=== PATIENT | male | born 1965 | race Caucasian/White ===

== ENCOUNTER 2017-02-01 16:30 | Inpatient (IN) | payer OTHER ==
[~2017-02-01] VITALS: Ht 180.3 cm; Wt 102.1 kg
[~2017-02-01 16:30] MED LIST: CITA20TA9 PO; CYCL10TA6 PO; NORT25CA PO; OXYC-57 PO; oxycontin PO
[2017-02-01] MEDS ORDERED: HYDROmorphone INJ 1 MG/ML SYR IV STA (16:55)
[2017-02-01] MEDS ORDERED: SODIUM CHLORIDE 0.9% 1000ML 1,000 ML IV STA (16:55)
[2017-02-01] MEDS ORDERED: ONDANSETRON INJ 2 MG/ML 2 ML VIAL IV STA (16:55)
[2017-02-01] MEDS ORDERED: FLM4 PO (17:03)
[2017-02-01 17:07] LABS: BASO % 0.3 %; BASO ABS # 0.04 K/uL (0-0.2); COMPLETE YES; EOS % 0.3 %; IG% 0.4 %; LYMPH % 9.7 %; LYMPH ABS # 1.39 K/uL (1.2-3.4); MEAN CELL VOLUME 83.9 fL (80-100); MEAN CORPUSCULAR HEMOGLOBIN 30.8 pg (25-34); MEAN CORPUSCULAR HGB CONC 36.7 g/dl (32-36); MEAN PLATELET VOLUME 10.5 fL (7.4-10.4); MONO % 6.6 %; NEUT % 82.7 %; PLATELET COUNT 224 K/uL (130-400); RED BLOOD COUNT 5.84 M/uL (4.7-6.1); WHITE BLOOD COUNT 14.33 K/uL (4.8-10.8)
[2017-02-01 17:13] LABS: URINE APPEARANCE CLEAR (CLEAR); URINE BILIRUBIN NEG (NEG); URINE COLOR YELLOW; URINE EPITHELIAL CELL AUTO 0-5 /lpf (0-5); URINE NITRITE NEG (NEG); URINE SPECIFIC GRAVITY 1.013 (1.000-1.030); UROBILINOGEN NEG (NEG)
[2017-02-01 17:23] LABS: BUN/CREATININE RATIO 8.9 (10-20); CALCIUM 9.5 mg/dl (8.5-10.1); CREATININE 1.4 mg/dl (0.60-1.40); MANUAL MICROSCOPIC REQUIRED? NO; POTASSIUM 3.4 mmol/L (3.5-5.1); REVIEW REQ? NO
[2017-02-01] MEDS ORDERED: HYDROmorphone INJ 0.5 MG/0.5 ML SYR IV STA (17:44)
--- NOTE | 2017-02-01 18:02 | History and Physical ---
History & Physical Date & Time of Service: Feb 01, 2017 at 18:00 Chief Complaint: Kidney Stone, Sever Pain Left Side, Vomiting Primary Care Physician: Jeyson Mike D.O. History of Present Illness Source: patient, family 52 year old male with history of Chronic Back Pain, GERD, Depression presenting with persistent left flank pain x 1 week. Patient had 2 ER visits at [facility] the past week secondary to left flank pain. CT abdomen last taken 01/30/17 showed left ureteral stone 3mm, distal ureter, obstructing with left hydroureteronephrosis and perinephric/ureteral stranding. He is currently following with [facility] in [place] and scheduled for cystoscopy on Sunday. Today, patient had severe pain, called the Urology Clinic and was advised to go to [facility] for management. At the ER, patient was given Dilaudid but noted to desaturate in the 70s, placed on oxygen and improved. His WBC is elevated at 14k, but afebrile, UA no bacteria. On exam, patient states pain is moderate, radiating to left flank, and testicle. Denies dominic hematuria, has chills. No other symptoms. Denies dyspnea, cough, chest pain. Family History Cancer- parents Social History Smoking Status: Never Smoker Smokeless Tobacco Use: No Alcohol Use: none Drug Use: none Marital Status: Housing status: lives with family Allergies Coded Allergies: Codeine (Unverified Allergy, Unknown, Nausea/vomiting, 02/01/17) Morphine (Unverified Allergy, Unknown, Nausea/vomiting, 03/28/16) Home Medications Scheduled Citalopram Hydrobromide (Celexa), 1 TAB PO DAILY Cyclobenzaprine Hcl (Flexeril), 1 TAB PO TID Nortriptyline (Pamelor), 25 MG PO HS Tamsulosin HCl (Tamsulosin HCl), 0.4 MG PO DAILY Scheduled PRN Oxycodone/Acetaminophen 5MG/325MG (Percocet 5MG/325MG), 2 TABLETS PO Q4H PRN for Pain Review of Systems Constitutional-(+) chills; no weight loss Eyes- no acute visual changes ENT- no sinus drainage; no pharyngitis Pulmonary- no cough, no wheezing, no shortness of breath Cardiac- no chest pain, no palpitations, no orthopnea, no dependent edema GI- (+) nausea - (+) as noted above Musculoskeletal- no arthralgias, no myalgias Derm- no rashes, no new skin lesions, no changing skin lesions Hematologic- no unusual bruising, no unusual bleeding Lymphatics- no adenopathy Endocrine- no polyuria or polydipsia; no heat or cold intolerance Neuro- no headaches, no focal neurologic symptoms Psych- no anxiety, no depression Physical Exam Vital Signs Date Time Temp Pulse Resp B/P (MAP) Pulse Ox O2 Delivery O2 Flow Rate FiO2 02/01/17 17:31 150/84 02/01/17 17:30 75 15 94 02/01/17 17:30 94 Nasal Cannula 3.0 02/01/17 17:29 76 Room Air 02/01/17 17:09 81 02/01/17 17:07 81 18 141/86 100 Room Air 02/01/17 17:07 141/86 02/01/17 16:44 36.5 81 18 154/89 100 Room Air General Appearance: WD/WN, no apparent distress Head: normocephalic, atraumatic Eyes: normal inspection, EOMI, sclerae normal ENT: normal ENT inspection, hearing grossly normal, pharynx normal Neck: supple, no adenopathy, thyroid normal, no JVD, trachea midline Respiratory/Chest: chest non-tender, lungs clear, normal breath sounds, no respiratory distress, no accessory muscle use Cardiovascular: regular rate, rhythm, no edema, no JVD, no murmur, normal peripheral pulses Abdomen/GI: normal bowel sounds, soft, no organomegaly, + pertinent finding ( mild left CVA tenderness, left flank tenderness) Back: normal inspection, + left CVA tenderness Extremities/Musculoskelatal: normal inspection, no calf tenderness, normal capillary refill, no pedal edema 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, no motor/sensory deficits, alert, normal mood/affect, oriented x 3 Skin: normal color, warm/dry, no rash Lymphatic: no adenopathy Diagnostics Laboratory Results Results Past 24 Hours Test 02/01/17 16:51 Range/Units White Blood Count 14.33 4.8-10.8 K/uL Red Blood Count 5.84 4.7-6.1 M/uL Hemoglobin 18.0 14.0-18.0 g/dL Hematocrit 49.0 42-52 % Mean Corpuscular Volume 83.9 80-100 fL Mean Corpuscular Hemoglobin 30.8 25-34 pg Mean Corpuscular Hemoglobin Concent 36.7 32-36 g/dl Platelet Count 224 130-400 K/uL Mean Platelet Volume 10.5 7.4-10.4 fL Neutrophils (%) (Auto) 82.7 % Lymphocytes (%) (Auto) 9.7 % Monocytes (%) (Auto) 6.6 % Eosinophils (%) (Auto) 0.3 % Basophils (%) (Auto) 0.3 % Neutrophils # (Auto) 11.85 1.4-6.5 K/uL Lymphocytes # (Auto) 1.39 1.2-3.4 K/uL Monocytes # (Auto) 0.94 0.11-0.59 K/uL Eosinophils # (Auto) 0.05 0-0.5 K/uL Basophils # (Auto) 0.04 0-0.2 K/uL RDW Standard Deviation 39.2 36.4-46.3 fL RDW Coefficient of Variation 13.0 11.5-14.5 % Immature Granulocyte % (Auto) 0.4 % Immature Granulocyte # (Auto) 0.06 0.00-0.02 K/uL Urine Color YELLOW Urine Appearance CLEAR CLEAR Urine pH 7.0 4.5-7.5 Urine Specific [place] 1.013 1.000-1.030 Urine Protein NEG NEG Urine Glucose (UA) NEG NEG Urine Ketones NEG NEG Urine Occult Blood 1+ NEG Urine Nitrite NEG NEG Urine Bilirubin NEG NEG Urine Urobilinogen NEG NEG Urine Leukocyte Esterase NEG NEG Urine WBC (Auto) 1-5 0-5 /hpf Urine RBC (Auto) 0-4 0-4 /hpf Urine Hyaline Casts (Auto) 0 0-5 /lpf Urine Epithelial Cells (Auto) 0-5 0-5 /lpf Urine Bacteria (Auto) NEG NEG Sodium Level 136 136-145 mmol/L Potassium Level 3.4 3.5-5.1 mmol/L Chloride Level 102 98-107 mmol/L Carbon Dioxide Level 26 21-32 mmol/L Anion Gap 8.0 3-11 mmol/L Blood Urea Nitrogen 12 7-18 mg/dl Creatinine 1.40 0.60-1.40 mg/dl Est Creatinine Clear Calc Drug Dose 76.7 ml/min Estimated GFR () 67.4 Estimated GFR (Non- 58.2 BUN/Creatinine Ratio 8.9 10-20 Random Glucose 103 70-99 mg/dl Calcium Level 9.5 8.5-10.1 mg/dl Total Bilirubin 0.8 0.2-1 mg/dl Direct Bilirubin 0.1 0-0.2 mg/dl Aspartate Amino Transf (AST/SGOT) 32 15-37 U/L Alanine Aminotransferase (ALT/SGPT) 80 12-78 U/L Alkaline Phosphatase 100 45-117 U/L Total Protein 9.0 6.4-8.2 gm/dl Albumin 4.6 3.4-5.0 gm/dl Lipase 139 73-393 U/L Diagnostic Radiology EXAM EXAM: CT ABDOMEN /PELVIS WITHOUT IV CONTRAST WITHOUT ORAL DATE and TIME: 01/30/2017 11:26 pm HISTORY CLINICAL INFORMATION: Left-sided kidney stone but today with increased pain nausea vomiting TECHNIQUE CT abdomen and pelvis without intravenous or oral contrast. Axial 2.5 mm images are obtained from lung bases to upper thigh. Sagittal and coronal MPR images are obtained from axial data. COMPARISON CT ABDOMEN /PELVIS WITHOUT IV CONTRAST WITHOUT ORAL dated 01/28/2017 FINDINGS LOWER CHEST: HEART(visualized): Unremarkable LUNG BASES: Atelectasis in bilateral lower lobes. No pleural effusion ABDOMEN/PELVIS: LINES AND DEVICES: None LIVER: Diffuse hepatic steatosis. BILE DUCTS: Unremarkable GALLBLADDER: Unremarkable PANCREAS: Unremarkable SPLEEN: Unremarkable ADRENALS: Unremarkable KIDNEYS/URETERS: No right nephrolithiasis or hydronephrosis. Unchanged 3 mm calculus in the left lower ureter with progression of left hydroureteronephrosis. Mild thickening of the left lower ureter and periureteric stranding in the pelvis on image [id number], series 3. New finding of left perinephric stranding and thickening of left pararenal fascia. BLADDER: Unremarkable BOWEL: Scattered colonic diverticulosis. Unremarkable appendix. LYMPH NODES: No lymphadenopathy. VESSELS: Small calcified plaque in the right iliac artery. REPRODUCTIVE ORGANS: Stable central calcification within the seminal vesicles. PERITONEUM/RETROPERITONEUM: No ascites or pneumoperitoneum. ABDOMINAL WALL/SOFT TISSUES: Small fat containing umbilical hernia. BONES: Stable postsurgical changes in the spine, status post a laminectomy L5 with posterior spinal fusion L4, L5 and S1. IMPRESSION 1. No interval change in the position of 3 mm obstructing calculus in the left lower ureter with progression of left hydroureteronephrosis and perinephric stranding. Mild thickening of the left lower ureter and periureteric stranding. Correlate with urine analysis to exclude superimposed infection. 2. Diffuse hepatic steatosis. Impression Assessment and Plan 52 year old male with history of Chronic Back Pain, GERD, Depression presenting with persistent left flank pain x 1 week. LEFT URETERAL OBSTRUCTING STONE WITH URETEROHYDRONEPHROSIS POSSIBLE UTI -- will follow up urine culture drawn at [facility] blood cultures ordered -- empiric Ceftriaxone IV IV fluids Toradol, Percocet PRN no Dilaudid and Morphine due to respiratory depression -- discussed with Dr. Miranda, possible Cystoscopy tomorrow NPO post midnight HYPO K -- will replace and monitor EPISODE OF HYPOXIA -- likely respiratory depression from Dilaudid will avoid IV narcotics -- check CXR CHRONIC BACK PAIN -- on chronic Percocet will continue DEPRESSION -- on Citalopram, Nortriptyline DVT proph SCDs Full code per patient Dispo Anticipate d/c home when medically stable VTE Prophylaxis VTE Risk Assessment Done? Y/N: Yes Risk Level: Moderate
[2017-02-01 18:40] VITALS: BP 150/84; PULSE 94; TEMP 36.5; O2SAT 98; Ht 180.3 cm; Wt 102.1 kg
[2017-02-01] MEDS ORDERED: OXYCODONE/ACETAMINOPHEN 5-325 TAB PO PRN (19:15)
[2017-02-01] MEDS ORDERED: ACETAMINOPHEN 325 MG TAB PO PRN (19:15)
[2017-02-01] MEDS ORDERED: POTASSIUM CHLORIDE 10 MEQ TABCR PO ONE (19:30)
[2017-02-01] MEDS ORDERED: KETOROLAC TROMETHAMINE 30 MG/ML VIAL IV ONE (19:30)
[2017-02-01 20:00] VITALS: BP 108/76; PULSE 84; TEMP 36.5; O2SAT 92
[2017-02-01] MEDS: NSS + 20MEQ KCL 1000ML 1,000 ML IV SCH (20:35)
[2017-02-01] MEDS: CEFTRIAXONE SOD INJ 2,000 MG in DEXTROSE 5% 50ML 50 ML IV SCH (20:36)
[2017-02-01] MEDS: ONDANSETRON INJ 2 MG/ML 2 ML VIAL IV PRN (20:55)
[2017-02-01] MEDS: NORTRIPTYLINE HCL 25 MG CAP PO SCH ×2 (20:55→20:58)
--- NOTE | 2017-02-01 21:15 | DIAGNOSTIC IMAGING REPORT ---
CHEST ONE VIEW PORTABLE CLINICAL HISTORY: episode of hypoxia dyspnea COMPARISON STUDY: No previous studies for comparison. FINDINGS: Minimal parenchymal infiltrative change left base. Lungs otherwise appear clear. Mild cardiac enlargement. IMPRESSION: Mild parenchymal infiltrate left base. Mild cardiomegaly. The above report was generated using voice recognition software. It may contain grammatical, syntax or spelling errors. Electronically signed by: Dong Hector M.D. 02/01/2017 9:13 PM Dictated Date/Time: 02/01/2017 9:13 PM
--- NOTE | 2017-02-01 22:19 | Urology Consultation ---
History General Date of Service: Feb 01, 2017. Chief Complaint: L flank pain, stone disease Primary Care Physician: Jeyson Mike D.O. Pt seen a urologist before?: Yes If yes, why?: Stone disease History of Present Illness Patient is a 52-year-old male who complains of left-sided flank pain for over a week. He resides in [place] and was pending evaluation for possible stone intervention early next week. He has had lab work and imaging including a CT scan done at [facility] report of which is noted in the H&P of the primary service. This demonstrates a left distal 3 mm ureteral stone with hydronephrosis. Patient has not been febrile but is suffered from intractable pain and nausea. Unfortunately, on provision of IV Dilaudid in the emergency room patient desaturated and therefore is in the cardiac ICU for closer monitoring. He was transferred locally for urology coverage. His creatinine is noted to currently be 1.4, outside chart or imaging not able to be directly reviewed but noted in H&P. Urology consultation is sought out to assist with the patient's care. He denies stone passage. He denies previous history of stone or a family history of kidney stones. HPI - Stones Size: 3 mm Location: left, UVJ Pain: left flank Patient has: + nausea, + hydronephrosis Imaging Imaging: CT Laboratory Last 24 Hours Test 02/01/17 16:51 02/01/17 19:33 White Blood Count 14.33 K/uL Red Blood Count 5.84 M/uL Hemoglobin 18.0 g/dL Hematocrit 49.0 % Mean Corpuscular Volume 83.9 fL Mean Corpuscular Hemoglobin 30.8 pg Mean Corpuscular Hemoglobin Concent 36.7 g/dl Platelet Count 224 K/uL Mean Platelet Volume 10.5 fL Neutrophils (%) (Auto) 82.7 % Lymphocytes (%) (Auto) 9.7 % Monocytes (%) (Auto) 6.6 % Eosinophils (%) (Auto) 0.3 % Basophils (%) (Auto) 0.3 % Neutrophils # (Auto) 11.85 K/uL Lymphocytes # (Auto) 1.39 K/uL Monocytes # (Auto) 0.94 K/uL Eosinophils # (Auto) 0.05 K/uL Basophils # (Auto) 0.04 K/uL RDW Standard Deviation 39.2 fL RDW Coefficient of Variation 13.0 % Immature Granulocyte % (Auto) 0.4 % Immature Granulocyte # (Auto) 0.06 K/uL Urine Color YELLOW Urine Appearance CLEAR Urine pH 7.0 Urine Specific [place] 1.013 Urine Protein NEG Urine Glucose (UA) NEG Urine Ketones NEG Urine Occult Blood 1+ Urine Nitrite NEG Urine Bilirubin NEG Urine Urobilinogen NEG Urine Leukocyte Esterase NEG Urine WBC (Auto) 1-5 /hpf Urine RBC (Auto) 0-4 /hpf Urine Hyaline Casts (Auto) 0 /lpf Urine Epithelial Cells (Auto) 0-5 /lpf Urine Bacteria (Auto) NEG Sodium Level 136 mmol/L Potassium Level 3.4 mmol/L Chloride Level 102 mmol/L Carbon Dioxide Level 26 mmol/L Anion Gap 8.0 mmol/L Blood Urea Nitrogen 12 mg/dl Creatinine 1.40 mg/dl Est Creatinine Clear Calc Drug Dose 76.7 ml/min Estimated GFR () 67.4 Estimated GFR (Non- 58.2 BUN/Creatinine Ratio 8.9 Random Glucose 103 mg/dl Calcium Level 9.5 mg/dl Total Bilirubin 0.8 mg/dl Direct Bilirubin 0.1 mg/dl Aspartate Amino Transf (AST/SGOT) 32 U/L Alanine Aminotransferase (ALT/SGPT) 80 U/L Alkaline Phosphatase 100 U/L Total Protein 9.0 gm/dl Albumin 4.6 gm/dl Lipase 139 U/L Magnesium Level 2.1 mg/dl Past History depression, GERD, kidney stones, other (chronic back pain) Past Surgical History: spinal surgery Social History Hx Tobacco Use In Past Year?: No Smoking: non-smoker Alcohol: no current use Marital status: Housing status: lives with family Allergies Coded Allergies: Codeine (Unverified Allergy, Unknown, Nausea/vomiting, 02/01/17) Morphine (Unverified Allergy, Unknown, Nausea/vomiting, 03/28/16) Medications Home Medications: Home Meds and Scripts Medications Dose Route/Sig Max Daily Dose Days Date Category Dose Instructions Tamsulosin HCl 0.4 Mg Cap 0.4 Mg PO DAILY 02/01/17 Reported Flexeril (Cyclobenzaprine Hcl) 10 Mg Tab 1 Tab PO TID 02/09/16 Reported Percocet 5MG/325MG (Oxycodone/Acetaminophen) Tab 2 Tablets PO Q4H PRN 02/09/16 Reported PAIN Pamelor (Nortriptyline HCl) 25 Mg Cap 25 Mg PO HS 02/09/16 Reported Celexa (Citalopram Hydrobromide) 20 Mg Tab 1 Tab PO DAILY 02/09/16 Reported Inpatient Medications: Current Inpatient Medications Medications (Trade) Dose Ordered Sig/Virgilio Route Start Time Stop Time Status Last Admin Dose Admin Potassium Chloride/Sodium Chloride 1,000 ml @ 150 mls/hr Q6H40M IV 02/01/17 19:30 03/03/17 19:29 02/01/17 20:35 150 MLS/HR Ketorolac Tromethamine (Toradol Inj) 30 mg Q6H PRN IV 02/01/17 19:15 02/06/17 19:14 Ceftriaxone Sodium 2000 mg/ Dextrose 70 ml @ 100 mls/hr Q24H IV 02/01/17 20:00 02/11/17 19:59 02/01/17 20:36 100 MLS/HR Oxycodone/ Acetaminophen (Percocet 10-325MG Tab) 1 tab Q6H PRN PO 02/01/17 19:15 02/15/17 19:14 Acetaminophen (Tylenol Tab) 650 mg Q4H PRN PO 02/01/17 19:15 03/03/17 19:14 Ondansetron HCl (Zofran Inj) 4 mg Q6H PRN IV 02/01/17 19:15 03/03/17 19:14 02/01/17 20:55 4 MG Citalopram Hydrobromide (celeXA TAB) 20 mg DAILY PO 02/02/17 09:00 03/04/17 08:59 Nortriptyline HCl (Pamelor Cap) 25 mg HS PO 02/01/17 21:00 03/03/17 20:59 Tamsulosin HCl (Flomax Cap) 0.4 mg DAILY PO 02/02/17 09:00 03/04/17 08:59 Review of Systems Review of Systems Constitutional: No fever Eyes: No double vision, No eye pain Neurological: No passing out, No seizures Endocrine: + tired/sluggish Gastrointestinal: + abdominal pain, + nausea Cardiovascular: No angina, No irregular heartbeat Respiratory: No coughing up blood Skin: No boils Musculoskeletal: + back pain Ears / Nose / Throat: No hearing loss, No sinus Psychologic / Mental: No trouble remembering Male : + see HPI, + kidney stones Physical Exam Vital Signs: Vital Signs Past 12 Hours Date Time Temp Pulse Resp B/P (MAP) Pulse Ox O2 Delivery O2 Flow Rate FiO2 02/01/17 18:40 36.5 94 16 150/84 98 Nasal Cannula 3.0 02/01/17 18:19 36.5 101 15 140/84 94 02/01/17 18:18 101 15 140/84 94 Nasal Cannula 3.0 02/01/17 17:31 150/84 02/01/17 17:30 75 15 94 02/01/17 17:30 94 Nasal Cannula 3.0 02/01/17 17:29 76 Room Air 02/01/17 17:09 81 02/01/17 17:07 81 18 141/86 100 Room Air 02/01/17 17:07 141/86 02/01/17 16:44 36.5 81 18 154/89 100 Room Air Physical Exam: General Appearance: WD/WN, no apparent distress ENT: normal ENT inspection, hearing grossly normal Neck: supple, no adenopathy Respiratory/Chest: no respiratory distress, no accessory muscle use Cardiovascular: no JVD Gastrointestinal: Abdomen: normal abdomen Renal: cva tenderness (left) Liver: normal liver Spleen: normal spleen Extremities: non-tender Neurologic/Psychiatric: alert Skin: normal color Assessment & Plan Assessment & Plan Treatment Planned: ureteroscopy w/ laser A/P 52-year-old male with a 3 mm left distal ureteral stone and intractable nausea, colic. Findings discussed with the patient. He reports he strongly wishes to proceed with surgical intervention seen his difficulties up until present especially in the form of intractable nausea as well as his intolerance of various pain medications. Risks and benefits of intervention are reviewed with the patient in the form of endoscopic management of the stone with stent placement. Stent side effects are also reviewed. Patient is nothing by mouth after midnight for possible intervention tomorrow. Will check a KUB in the morning and see the patient to determine the treatment plan. Thank you for allowing us to participate in this patients care. Will follow the patient with you.
[2017-02-01 22:55] VITALS: BP 136/86; PULSE 74; TEMP 36.4; O2SAT 100
[2017-02-01] MEDS: OXYCODONE/ACETAMINOPHEN 10/325MG TAB PO PRN (23:45)
[2017-02-02] VITALS (12 sets, daily range): BP systolic 109–153; BP diastolic 70–91; PULSE 70–84; TEMP 36.4–36.8; O2SAT 91–99
--- NOTE | 2017-02-02 00:30 | EMERGENCY ROOM VISIT NOTE ---
ED Visit Note First contact with patient: 16:47 Chief Complaint: Kidney stone. History of Present Illness: Mr. Lorenz is a 52-year-old white male who ambulates into the ED complaining of kidney stone pain. Historically patient has a history of GERD, chronic back pain and is status post L5 laminectomy with posterior fusion of L4 through S1. Patient was seen at the [facility] ED on January 28 and was diagnosed with a 3 mm left ureter calculus. He was discharged home in stable condition. He returned on January 30 with worsening pain and vomiting. A repeat CT was performed and showed no interval change in the 3 mm stone but did have progression of left hydroureteronephrosis with perinephric stranding. On January 31 he was seen by [facility] urology and was scheduled for ureter stent placement and lithotripsy for February 05. Approximately one hour before the patient arrived in our emergency department he had an acute onset of increasing pain associated with nausea and vomiting. He did contact his urologist office and was encouraged to come to this emergency department because no surgical intervention was available at [facility]. Currently patient is complaining over the left lateral mid quadrant abdominal area at the mid axillary line. He describes his pain as a severe cramping sensation. He rates his discomfort 10/10. The pain is radiating down into the left lower quadrant and in towards the left testicle. He has not identified any aggravating or alleviating factors related to the pain. He has used his prescribed Percocet without relief of his discomfort. Associated with his pain he has been nauseated, vomiting, chills; but denies dominic fevers, and has only been able to dribble when he attempts to urinate. He denies headaches, dizziness, lightheadedness, skin eruptions, skin color changes, neck pain, thoracic back pain, chest pain, shortness of breath, diarrhea, constipation, urinary burning, increased urinary frequency, hematuria , constipation, diarrhea, rectal bleeding, black/tarry stools, urinary symptoms , genital paresthesias, bowel and bladder dysfunction, lower extremity weakness/ numbness/tingling. Review of Systems: As noted above in history of present illness. All body systems were reviewed and found to be negative as noted above. Past Medical History: As previously noted and depression. Current Medications: Medications Dose Route/Sig Max Daily Dose Days Date Category Dose Instructions Tamsulosin HCl 0.4 Mg Cap 0.4 Mg PO DAILY 02/01/17 Reported Flexeril (Cyclobenzaprine Hcl) 10 Mg Tab 1 Tab PO TID 02/09/16 Reported Percocet 5MG/325MG (Oxycodone/Acetaminophen) Tab 2 Tablets PO Q4H PRN 02/09/16 Reported PAIN Pamelor (Nortriptyline HCl) 25 Mg Cap 25 Mg PO HS 02/09/16 Reported Celexa (Citalopram Hydrobromide) 20 Mg Tab 1 Tab PO DAILY 02/09/16 Reported Allergies to Medications: Codeine, morphine. Social History: Patient is and lives with his family; he feels safe in his home environment; he denies tobacco and alcohol use. Physical Examination: Vital Signs: Date Time Temp Pulse Resp B/P (MAP) Pulse Ox O2 Delivery O2 Flow Rate FiO2 02/01/17 17:31 150/84 02/01/17 17:30 75 15 94 02/01/17 17:30 94 Nasal Cannula 3.0 02/01/17 17:29 76 Room Air 02/01/17 17:09 81 02/01/17 17:07 81 18 141/86 100 Room Air 02/01/17 17:07 141/86 02/01/17 16:44 36.5 81 18 154/89 100 Room Air GENERAL: 52-year-old male in moderate to severe distress due to pain, nontoxic- appearing, afebrile and hemodynamically stable. NEUROLOGICAL: Awake, alert and oriented to person, place and time. Answering questions appropriately and following commands. Normal gait. Good hand eye coordination. SKIN: Warm, dry and pink. No soft tissue eruptions or trauma noted. HEENT: Atraumatic and normocephalic. PERRLA. Sclera white and conjunctiva pink. Airway patent. Pharynx is nonerythematous or edematous. Speech normal. Trachea midline. No jugular venous distention. BACK: No tenderness over the bony spine. Mild left-sided CVA tenderness. THORAX: Lungs sounds are clear to auscultation and equal bilaterally with symmetrical chest wall. No wheezing, rales or rhonchi. No crepitus, tenderness , subcutaneous air or deformities noted. HEART: Regular rate and rhythm. No gallops, rubs or murmurs are appreciated. ABDOMEN: Soft and flat with mild left upper and left lower quadrant abdominal discomfort. Positive bowel sounds in all quadrants. No guarding, rigidity or organomegaly. EXTREMITIES: Moves all extremities well on command and with purpose. All distal neurovascular statuses are intact and equal bilaterally. ED Course: Patient is assessed as noted above. Patient's medication list was reviewed. Laboratory Testing: Test 02/01/17 16:51 Range/Units White Blood Count 14.33 4.8-10.8 K/uL Red Blood Count 5.84 4.7-6.1 M/uL Hemoglobin 18.0 14.0-18.0 g/dL Hematocrit 49.0 42-52 % Mean Corpuscular Volume 83.9 80-100 fL Mean Corpuscular Hemoglobin 30.8 25-34 pg Mean Corpuscular Hemoglobin Concent 36.7 32-36 g/dl Platelet Count 224 130-400 K/uL Mean Platelet Volume 10.5 7.4-10.4 fL Neutrophils (%) (Auto) 82.7 % Lymphocytes (%) (Auto) 9.7 % Monocytes (%) (Auto) 6.6 % Eosinophils (%) (Auto) 0.3 % Basophils (%) (Auto) 0.3 % Neutrophils # (Auto) 11.85 1.4-6.5 K/uL Lymphocytes # (Auto) 1.39 1.2-3.4 K/uL Monocytes # (Auto) 0.94 0.11-0.59 K/uL Eosinophils # (Auto) 0.05 0-0.5 K/uL Basophils # (Auto) 0.04 0-0.2 K/uL RDW Standard Deviation 39.2 36.4-46.3 fL RDW Coefficient of Variation 13.0 11.5-14.5 % Immature Granulocyte % (Auto) 0.4 % Immature Granulocyte # (Auto) 0.06 0.00-0.02 K/uL Urine Color YELLOW Urine Appearance CLEAR CLEAR Urine pH 7.0 4.5-7.5 Urine Specific [place] 1.013 1.000-1.030 Urine Protein NEG NEG Urine Glucose (UA) NEG NEG Urine Ketones NEG NEG Urine Occult Blood 1+ NEG Urine Nitrite NEG NEG Urine Bilirubin NEG NEG Urine Urobilinogen NEG NEG Urine Leukocyte Esterase NEG NEG Urine WBC (Auto) 1-5 0-5 /hpf Urine RBC (Auto) 0-4 0-4 /hpf Urine Hyaline Casts (Auto) 0 0-5 /lpf Urine Epithelial Cells (Auto) 0-5 0-5 /lpf Urine Bacteria (Auto) NEG NEG Sodium Level 136 136-145 mmol/L Potassium Level 3.4 3.5-5.1 mmol/L Chloride Level 102 98-107 mmol/L Carbon Dioxide Level 26 21-32 mmol/L Anion Gap 8.0 3-11 mmol/L Blood Urea Nitrogen 12 7-18 mg/dl Creatinine 1.40 0.60-1.40 mg/dl Est Creatinine Clear Calc Drug Dose 76.7 ml/min Estimated GFR () 67.4 Estimated GFR (Non- 58.2 BUN/Creatinine Ratio 8.9 10-20 Random Glucose 103 70-99 mg/dl Calcium Level 9.5 8.5-10.1 mg/dl Total Bilirubin 0.8 0.2-1 mg/dl Direct Bilirubin 0.1 0-0.2 mg/dl Aspartate Amino Transf (AST/SGOT) 32 15-37 U/L Alanine Aminotransferase (ALT/SGPT) 80 12-78 U/L Alkaline Phosphatase 100 45-117 U/L Total Protein 9.0 6.4-8.2 gm/dl Albumin 4.6 3.4-5.0 gm/dl Lipase 139 73-393 U/L Patient was hydrated with normal saline and initially received 1 mg of the Dilaudid IV and 4 mg of Zofran IV. Shortly after receiving his IV Dilaudid his oxygen saturation dropped to 76% and he was started on 3 L of nasal cannula oxygen. Patient's oxygen saturation was rechecked on 3 L of nasal cannula oxygen and had increased to 96%. She was reassessed and subjectively reported he was feeling slightly better but still was rating his discomfort 8/10; patient was ordered 0.5 mg of the Dilaudid IV and to remain on the oxygen. Patient's case was reviewed with Dr. Odonnell; we agreed on diagnostic approach , treatment, disposition and plan per Patient's case was consulted with case management and Dr. Mahmood, [facility] hospitalist, for medical observation/admission. Patient was educated about today's findings and instructed on his treatment plan ; he verbalizes understanding and agreement with this plain. Clinical Impression: Irretractable pain due to left-sided kidney stone. Decision-Making: Initially my differential diagnosis I considered pyelonephritis on top of his kidney stone, pancreatitis, hepatitis, bowel obstruction and other causes. Disposition and Plan: Patient be brought into the hospital for medical observation/admission by the [facility] hospitalist; please see their notes and orders for final disposition and plan.
[2017-02-02] MEDS: NSS + 20MEQ KCL 1000ML 1,000 ML IV SCH ×3 (05:22→16:52)
--- NOTE | 2017-02-02 06:47 | DIAGNOSTIC IMAGING REPORT ---
KUB CLINICAL HISTORY: Renal calculus COMPARISON STUDY: No previous studies for comparison. FINDINGS: There is no pathologic bowel dilatation. There are postsurgical changes present within the lumbar spine. No renal calculi are visualized on conventional radiographic imaging. There are nonspecific pelvic basin calcifications, likely representing phleboliths. IMPRESSION: 1. No evidence of pathologic bowel dilatation 2. No urinary tract calculi identified on conventional radiographic imaging Electronically signed by: Van Ramirez M.D. 02/02/2017 6:45 AM Dictated Date/Time: 02/02/2017 6:45 AM
[2017-02-02 07:17] LABS: BUN/CREATININE RATIO 8.9 (10-20); CALCIUM 8.1 mg/dl (8.5-10.1); MAGNESIUM 2.2 mg/dl (1.8-2.4); POTASSIUM 4.1 mmol/L (3.5-5.1)
[2017-02-02] MEDS: CITALOPRAM 20 MG TAB PO SCH (07:28)
[2017-02-02] MEDS: TAMSULOSIN HCL 0.4 MG CAP PO SCH (07:28)
--- NOTE | 2017-02-02 07:33 | Progress Note ---
Subjective Date of Service: Feb 02, 2017. Subjective Pt evaluation today including: conversation w/ patient, physical exam, chart review, lab review, review of inpatient medication list Pain: Controlled at current, Percocet last night PO Intake: NPO per orders Voiding: no voiding problems 52 yo male with a distal L ureteral stone, 3 mm, admitted with intractable colic , NPO for possible intervention today. He denies stone passage. He notes his symptoms have improved, has not required pain meds since oral dose last night per nursing. He denies emesis or other changes in his symptoms. Review of Systems Constitutional: No fever, No chills Eyes: No worsening of vision Respiratory: No wheezing, No shortness of breath Cardiac: No chest pain Abdomen: + pain, + nausea, No vomiting Male : No incontinence Objective Vital Signs Date Time Temp Pulse Resp B/P (MAP) Pulse Ox O2 Delivery O2 Flow Rate FiO2 02/02/17 06:54 36.7 70 18 112/73 (86) 95 Room Air 02/02/17 04:49 36.4 84 16 133/81 99 Nasal Cannula 2.0 72 02/02/17 04:00 Nasal Cannula 2.0 02/02/17 03:30 36.4 72 16 133/81 (98) 99 Nasal Cannula 3.0 02/02/17 00:00 Nasal Cannula 2.0 02/01/17 22:55 36.4 74 18 136/86 (103) 100 Nasal Cannula 3.0 02/01/17 20:00 Room Air 02/01/17 20:00 36.5 84 18 108/76 (87) 92 Nasal Cannula 2.0 02/01/17 18:40 36.5 94 16 150/84 98 Nasal Cannula 3.0 02/01/17 18:19 36.5 101 15 140/84 94 02/01/17 18:18 101 15 140/84 94 Nasal Cannula 3.0 02/01/17 17:31 150/84 02/01/17 17:30 75 15 94 02/01/17 17:30 94 Nasal Cannula 3.0 02/01/17 17:29 76 Room Air 02/01/17 17:09 81 02/01/17 17:07 81 18 141/86 100 Room Air 02/01/17 17:07 141/86 02/01/17 16:44 36.5 81 18 154/89 100 Room Air Physical Exam General Appearance: WD/WN, no apparent distress ENT: hearing grossly normal Neck: supple, no adenopathy Respiratory/Chest: no respiratory distress, no accessory muscle use Cardiovascular: no JVD Abdomen: non tender, soft Neurologic/Psychiatric: alert, oriented x 3 Skin: normal color Laboratory Results Last 24 Hours Test 02/01/17 16:51 02/01/17 19:33 02/02/17 06:13 White Blood Count 14.33 K/uL Red Blood Count 5.84 M/uL Hemoglobin 18.0 g/dL Hematocrit 49.0 % Mean Corpuscular Volume 83.9 fL Mean Corpuscular Hemoglobin 30.8 pg Mean Corpuscular Hemoglobin Concent 36.7 g/dl Platelet Count 224 K/uL Mean Platelet Volume 10.5 fL Neutrophils (%) (Auto) 82.7 % Lymphocytes (%) (Auto) 9.7 % Monocytes (%) (Auto) 6.6 % Eosinophils (%) (Auto) 0.3 % Basophils (%) (Auto) 0.3 % Neutrophils # (Auto) 11.85 K/uL Lymphocytes # (Auto) 1.39 K/uL Monocytes # (Auto) 0.94 K/uL Eosinophils # (Auto) 0.05 K/uL Basophils # (Auto) 0.04 K/uL RDW Standard Deviation 39.2 fL RDW Coefficient of Variation 13.0 % Immature Granulocyte % (Auto) 0.4 % Immature Granulocyte # (Auto) 0.06 K/uL Urine Color YELLOW Urine Appearance CLEAR Urine pH 7.0 Urine Specific [place] 1.013 Urine Protein NEG Urine Glucose (UA) NEG Urine Ketones NEG Urine Occult Blood 1+ Urine Nitrite NEG Urine Bilirubin NEG Urine Urobilinogen NEG Urine Leukocyte Esterase NEG Urine WBC (Auto) 1-5 /hpf Urine RBC (Auto) 0-4 /hpf Urine Hyaline Casts (Auto) 0 /lpf Urine Epithelial Cells (Auto) 0-5 /lpf Urine Bacteria (Auto) NEG Sodium Level 136 mmol/L 141 mmol/L Potassium Level 3.4 mmol/L 4.1 mmol/L Chloride Level 102 mmol/L 109 mmol/L Carbon Dioxide Level 26 mmol/L 27 mmol/L Anion Gap 8.0 mmol/L 5.0 mmol/L Blood Urea Nitrogen 12 mg/dl 9 mg/dl Creatinine 1.40 mg/dl 1.00 mg/dl Est Creatinine Clear Calc Drug Dose 76.7 ml/min 107.9 ml/min Estimated GFR () 67.4 101.3 Estimated GFR (Non- 58.2 87.4 BUN/Creatinine Ratio 8.9 8.9 Random Glucose 103 mg/dl 87 mg/dl Calcium Level 9.5 mg/dl 8.1 mg/dl Total Bilirubin 0.8 mg/dl Direct Bilirubin 0.1 mg/dl Aspartate Amino Transf (AST/SGOT) 32 U/L Alanine Aminotransferase (ALT/SGPT) 80 U/L Alkaline Phosphatase 100 U/L Total Protein 9.0 gm/dl Albumin 4.6 gm/dl Lipase 139 U/L Magnesium Level 2.1 mg/dl 2.2 mg/dl Assessment and Plan A/P 52 yo male with a history of intractable colic from a L distal 3 mm ureteral stone. Findings reviewed. KUB shows no clear distal ureteral stone, Cr improved and symptoms abated. Patient anxious as he has had a similar cycle for the past week only to have his symptoms return. He strongly desires to know definitively that the problem is taken care of. Will therefore add on the schedule for L ureteroscopy, possible laser / basketing, stent. He understands he may have passed the stone into his bladder already. Should be able to be discharged home today after intervention.
[2017-02-02 07:56] LABS: BASO % 0.3 %; BASO ABS # 0.03 K/uL (0-0.2); COMPLETE YES; EOS % 1.9 %; HEMATOCRIT 44.8 % (42-52); IG% 0.3 %; LYMPH % 23.2 %; LYMPH ABS # 2.02 K/uL (1.2-3.4); MEAN CELL VOLUME 86.2 fL (80-100); MEAN CORPUSCULAR HEMOGLOBIN 28.7 pg (25-34); MEAN CORPUSCULAR HGB CONC 33.3 g/dl (32-36); MEAN PLATELET VOLUME 10.1 fL (7.4-10.4); MONO % 9.9 %; NEUT % 64.4 %; PLATELET COUNT 194 K/uL (130-400); WHITE BLOOD COUNT 8.72 K/uL (4.8-10.8)
--- NOTE | 2017-02-02 09:56 | Progress Note ---
Medicine Progress Note Date & Time of Visit: Feb 02, 2017 at 09:50. Subjective patient seen resting in bed more comfortable than yesterday states pain has improved denies hematuria, nausea, chills denies chest pain, dyspnea, cough, palpitations, dizziness no other symptoms Objective Last 8 Hrs Date Time Temp Pulse Resp B/P (MAP) Pulse Ox O2 Delivery O2 Flow Rate FiO2 02/02/17 08:00 Room Air 02/02/17 06:54 36.7 70 18 112/73 (86) 95 Room Air 02/02/17 04:49 36.4 84 16 133/81 99 Nasal Cannula 2.0 72 02/02/17 04:00 Nasal Cannula 2.0 02/02/17 03:30 36.4 72 16 133/81 (98) 99 Nasal Cannula 3.0 Physical Exam: General- oriented x 3, not in distress, speaks in sentences with no effort Eyes- EOMI, anicteric Neck- supple, no JVD Lungs- clear breath sounds bilaterally Heart- regular rhythm; no murmur, normal rate Abdomen- normal bowel sounds, soft, (+) mild left CVA tenderness Extremities- no pretibial edema, no calf tenderness; peripheral pulses intact Neuro- alert, oriented x 3;no gross focal deficits Skin- warm & dry Laboratory Results: Last 24 Hours Test 02/01/17 16:51 02/01/17 19:33 02/02/17 06:13 White Blood Count 14.33 K/uL 8.72 K/uL Red Blood Count 5.84 M/uL 5.20 M/uL Hemoglobin 18.0 g/dL 14.9 g/dL Hematocrit 49.0 % 44.8 % Mean Corpuscular Volume 83.9 fL 86.2 fL Mean Corpuscular Hemoglobin 30.8 pg 28.7 pg Mean Corpuscular Hemoglobin Concent 36.7 g/dl 33.3 g/dl Platelet Count 224 K/uL 194 K/uL Mean Platelet Volume 10.5 fL 10.1 fL Neutrophils (%) (Auto) 82.7 % 64.4 % Lymphocytes (%) (Auto) 9.7 % 23.2 % Monocytes (%) (Auto) 6.6 % 9.9 % Eosinophils (%) (Auto) 0.3 % 1.9 % Basophils (%) (Auto) 0.3 % 0.3 % Neutrophils # (Auto) 11.85 K/uL 5.61 K/uL Lymphocytes # (Auto) 1.39 K/uL 2.02 K/uL Monocytes # (Auto) 0.94 K/uL 0.86 K/uL Eosinophils # (Auto) 0.05 K/uL 0.17 K/uL Basophils # (Auto) 0.04 K/uL 0.03 K/uL RDW Standard Deviation 39.2 fL 41.3 fL RDW Coefficient of Variation 13.0 % 13.2 % Immature Granulocyte % (Auto) 0.4 % 0.3 % Immature Granulocyte # (Auto) 0.06 K/uL 0.03 K/uL Urine Color YELLOW Urine Appearance CLEAR Urine pH 7.0 Urine Specific [place] 1.013 Urine Protein NEG Urine Glucose (UA) NEG Urine Ketones NEG Urine Occult Blood 1+ Urine Nitrite NEG Urine Bilirubin NEG Urine Urobilinogen NEG Urine Leukocyte Esterase NEG Urine WBC (Auto) 1-5 /hpf Urine RBC (Auto) 0-4 /hpf Urine Hyaline Casts (Auto) 0 /lpf Urine Epithelial Cells (Auto) 0-5 /lpf Urine Bacteria (Auto) NEG Sodium Level 136 mmol/L 141 mmol/L Potassium Level 3.4 mmol/L 4.1 mmol/L Chloride Level 102 mmol/L 109 mmol/L Carbon Dioxide Level 26 mmol/L 27 mmol/L Anion Gap 8.0 mmol/L 5.0 mmol/L Blood Urea Nitrogen 12 mg/dl 9 mg/dl Creatinine 1.40 mg/dl 1.00 mg/dl Est Creatinine Clear Calc Drug Dose 76.7 ml/min 107.9 ml/min Estimated GFR () 67.4 101.3 Estimated GFR (Non- 58.2 87.4 BUN/Creatinine Ratio 8.9 8.9 Random Glucose 103 mg/dl 87 mg/dl Calcium Level 9.5 mg/dl 8.1 mg/dl Total Bilirubin 0.8 mg/dl Direct Bilirubin 0.1 mg/dl Aspartate Amino Transf (AST/SGOT) 32 U/L Alanine Aminotransferase (ALT/SGPT) 80 U/L Alkaline Phosphatase 100 U/L Total Protein 9.0 gm/dl Albumin 4.6 gm/dl Lipase 139 U/L Magnesium Level 2.1 mg/dl 2.2 mg/dl Date/Time Source Procedure Growth Status 02/01/17 19:43 Blood Blood Culture Pending Received 02/01/17 19:33 Blood Blood Culture Pending Received Assessment & Plan 52 year old male with history of Chronic Back Pain, GERD, Depression presenting with persistent left flank pain x 1 week. LEFT URETERAL OBSTRUCTING STONE WITH URETEROHYDRONEPHROSIS POSSIBLE UTI -- urine culture 02/01/17 from [facility]: pending blood cultures: pending -- afebrile WBC down from 13 to 8 clinically improving -- on empiric Ceftriaxone IV Day 2 IV fluids Toradol, Percocet PRN no Dilaudid and Morphine due to respiratory depression -- for Cystoscopy today ff up urine cultures -- highly appreciate Dr. Miranda's input HYPO K - resolved EPISODE OF HYPOXIA -- likely respiratory depression from Dilaudid will avoid IV narcotics -- CXR: left lower lobe infiltrate? check 2 views -- no cough, on room air CHRONIC BACK PAIN -- on chronic Percocet will continue DEPRESSION -- on Citalopram, Nortriptyline DVT proph SCDs Full code per patient Dispo Anticipate d/c home when medically stable Current Inpatient Medications: Current Inpatient Medications Medications (Trade) Dose Ordered Sig/Virgilio Route Start Time Stop Time Status Last Admin Dose Admin Potassium Chloride/Sodium Chloride 1,000 ml @ 150 mls/hr Q6H40M IV 02/01/17 19:30 03/03/17 19:29 02/02/17 05:22 150 MLS/HR Ketorolac Tromethamine (Toradol Inj) 30 mg Q6H PRN IV 02/01/17 19:15 02/06/17 19:14 Ceftriaxone Sodium 2000 mg/ Dextrose 70 ml @ 100 mls/hr Q24H IV 02/01/17 20:00 02/11/17 19:59 02/01/17 20:36 100 MLS/HR Oxycodone/ Acetaminophen (Percocet 10-325MG Tab) 1 tab Q6H PRN PO 02/01/17 19:15 02/15/17 19:14 02/01/17 23:45 1 TAB Acetaminophen (Tylenol Tab) 650 mg Q4H PRN PO 02/01/17 19:15 03/03/17 19:14 Ondansetron HCl (Zofran Inj) 4 mg Q6H PRN IV 02/01/17 19:15 9/9/17 19:14 02/01/17 20:55 4 MG Citalopram Hydrobromide (celeXA TAB) 20 mg DAILY PO 02/02/17 09:00 03/04/17 08:59 Nortriptyline HCl (Pamelor Cap) 25 mg HS PO 02/01/17 21:00 03/03/17 20:59 Tamsulosin HCl (Flomax Cap) 0.4 mg DAILY PO 02/02/17 09:00 03/04/17 08:59
[2017-02-02] MEDS ORDERED: ONDANSETRON INJ 2 MG/ML 2 ML VIAL IV PRN (10:00)
[2017-02-02] MEDS ORDERED: FENTANYL CITRATE INJ 50 MCG/1 ML 2 ML VIAL IV PRN (10:00)
[2017-02-02] MEDS ORDERED: ATROPINE SULFATE 0.1 MG/ML 5ML SYR IV PRN (10:00)
[2017-02-02] MEDS ORDERED: EpHEDrine SULFATE INJ 50 MG/ML AMP IV PRN (10:00)
[2017-02-02] MEDS ORDERED: CONRAY 30% 150ML BOTTLE ONE (10:16)
[2017-02-02] MEDS ORDERED: FENTANYL CITRATE INJ 50 MCG/1 ML 2 ML VIAL ONE ×2 (10:28→10:58)
[2017-02-02] MEDS ORDERED: MIDAZOLAM HCL 1 MG/ML 2ML VIAL ONE (10:28)
[2017-02-02] MEDS ORDERED: PROPOFOL IV EMULSION 10 MG/ML 20 ML VIAL IV ONE (10:28)
[2017-02-02] MEDS ORDERED: LIDOCAINE HCL 2% 2 ML VIAL (20MG/ML) ONE (10:28)
[2017-02-02] MEDS ORDERED: CEFAZOLIN IV 2,000 MG/60 ML D5W IV ONE (10:31)
--- NOTE | 2017-02-02 10:39 | History & Physical Bridge Note ---
H&P Re-Evaluation Bridge Note: I have examined the patient, reviewed the History & Physical and in the interval since the performance of the History & Physical I have noted the following changes of clinical significance: No changes noted
[2017-02-02] MEDS ORDERED: CEPH500C2 PO (10:42)
[2017-02-02] MEDS ORDERED: OXYC7.5T65 PO (10:42)
[2017-02-02] MEDS ORDERED: PHEN-775 PO (10:43)
[2017-02-02] MEDS ORDERED: NURSING VERBAL MED ORDER ONE (10:45)
[2017-02-02] MEDS ORDERED: ONDANSETRON INJ 2 MG/ML 2 ML VIAL ONE (10:55)
--- NOTE | 2017-02-02 12:02 | DIAGNOSTIC IMAGING REPORT ---
RETROGRADE INCLUDES KUB CLINICAL HISTORY: LT CYSTO/LASER/STENT COMPARISON STUDY: No previous studies for comparison. FINDINGS: 3 intraoperative fluoroscopic spot images are provided for interpretation. 58 seconds of fluoroscopic time was utilized. The right ureter was catheterized in a retrograde fashion. The final image demonstrates the proximal portion of a right-sided nephroureteral stent. The left ureter was also catheterized and a stent was inserted. The stent is located within the upper pole calyx. No collecting system filling defects are visualized on the single image demonstrating contrast opacification. IMPRESSION: Bilateral stent placement. Electronically signed by: Van Ramirez M.D. 02/02/2017 12:00 PM Dictated Date/Time: 02/02/2017 11:59 AM
--- NOTE | 2017-02-02 12:10 | [facility] Operative Report ---
Operative Report Operative Date Feb 02, 2017. Pre-Operative Diagnosis Left ureteral stone Post-Operative Diagnosis Left ureteral stone; right ureteral stricture Procedure(s) Performed Cystoscopy, Bilateral Retrograde, Bilateral Ureteroscopy, Bilateral Stent placement, Right ureteral dilatation, Left Basket Stone Extraction Surgeon Dr. Cueva Spray Gunner Surgeon(s) None Estimated Blood Loss 10ml Findings Right distal ureter stricture. Left Obstructing stone mid ureter near crossing of iliac vessels. Fluids See Anes Report Specimens none Drains 6 x 26 Double J stent Bilateral Anesthesia GET Complication(s) None Disposition Recovery Room / PACU Indications Obstructing stones with intractable N/V and Renal Colic. Long conversations of risks and benefits. Patient was agreeable and consented. Description of Procedure Patient was consented and brought back to the operating room. Patient was placed under anesthesia and into the dorsal lithotomy position. A time out was completed. A 30degree Cystoscope was placed into the bladder and the entire bladder was examined. The UO's bilaterally were identified. Retrograde pyelogram was completed bilaterally with 5 fr open ended catheter. Stricture of the distal ureter on right was noted on pyelogram. A wire was placed. The long rigid cystoscope was selected and taken to the area of stricture. It was able to be bypassed with the scope over a second wire, but was unable to be advanced further. The long rigid was removed and a ureteral access sheath was placed over the second wire. This dilated the strictured segment. A Digital Video Ureteroscope was placed into the sheath and the entire pelvis and ureter was examined. The scope was slowly removed and the first wire left in place. A 6 x 26 double J ureteral stent was placed and confirmed with fluoroscopy. The retrograde pyelogram on the left identified the obstructing mid ureteral stone with hydronephrosis. A wire was placed and the long rigid ureteroscope was advanced into the left UO. The stone was identified in the mid ureter. The stone was grasped with a basket and slowly removed. The stone was placed into the bladder and the scope taken back into the ureter. The prox, mid, and distal ureter was inspected with no further stone. The wire was left in place, and the scope removed. With the wire in place, a 6 x 26 Double J stent was placed. It was confirmed with fluoroscopy. With the stent in place, the bladder was emptied. The scope was removed. The patient was cleaned, aroused from anesthesia, and transferred to the pacu in stable condition having tolerated the procedure well with no complications. I was present and participated in all aspects of the procedure. The patient will be monitored in the PACU until transferred. The patient will follow up in 1-2 weeks for removal of the stents. Will follow closely. Patient has history of gout and had not been taking medicine for control. Will need further workup for possible uric acid related stones. I attest to the content of the Intraoperative Record and any orders documented therein. Any exceptions are noted below.
--- NOTE | 2017-02-02 12:49 | Anesthesiology Progress Note ---
Anesthesia Post Op Note Date & Time Feb 02, 2017 at 12:49 Vital Signs Pain Intensity: 0 Vital Signs Past 12 Hours Date Time Temp Pulse Resp B/P (MAP) Pulse Ox O2 Delivery O2 Flow Rate FiO2 02/02/17 12:40 69 19 136/91 92 Room Air 02/02/17 12:30 36.3 79 15 142/93 92 Room Air 02/02/17 12:20 76 16 152/92 93 Room Air 02/02/17 12:10 80 13 144/100 98 Oxymask 10 02/02/17 12:00 72 12 152/94 99 Oxymask 10 02/02/17 11:53 36.4 80 14 143/97 94 Oxymask 10 02/02/17 08:00 Room Air 02/02/17 06:54 36.7 70 18 112/73 (86) 95 Room Air 02/02/17 04:49 36.4 84 16 133/81 99 Nasal Cannula 2.0 72 02/02/17 04:00 Nasal Cannula 2.0 02/02/17 03:30 36.4 72 16 133/81 (98) 99 Nasal Cannula 3.0 Notes Mental Status: alert / awake / arousable, participated in evaluation Pt Amnestic to Procedure: Yes Nausea / Vomiting: adequately controlled Pain: adequately controlled Airway Patency, RR, SpO2: stable & adequate BP & HR: stable & adequate Hydration State: stable & adequate Anesthetic Complications: no major complications apparent
[2017-02-02] MEDS: KETOROLAC TROMETHAMINE 30 MG/ML VIAL IV PRN ×3 (12:58→23:39)
[2017-02-02] MEDS: OXYCODONE/ACETAMINOPHEN 10/325MG TAB PO PRN (15:04)
--- NOTE | 2017-02-02 16:27 | DIAGNOSTIC IMAGING REPORT ---
CHEST 2 VIEWS ROUTINE CLINICAL HISTORY: Hypoxia. Evaluate for aspiration. COMPARISON STUDY: Chest radiograph February 01, 2017. FINDINGS: Lateral view demonstrates a 3.5 cm opacity projecting over the posterior elements of the lower thoracic spine. PA projection demonstrates tubular bibasilar opacities. There are linear opacities within the left lung which favor atelectasis. There is no evidence of pulmonary edema. No pneumothorax or pleural effusion is identified. IMPRESSION: 1. 3.5 cm opacity projecting over the posterior aspect of the lower thoracic spine on lateral projection. This is nonspecific and could reflect consolidation, atelectasis or mass. Follow-up PA and lateral chest radiographs in 2 weeks are recommended to ensure resolution. 2. Irregular linear opacities within the lungs. The findings could reflect atelectasis or an infectious process. Possible underlying bronchiectasis. Electronically signed by: Christopher Lala M.D. 02/02/2017 4:25 PM Dictated Date/Time: 02/02/2017 4:22 PM
[2017-02-02] MEDS: ONDANSETRON INJ 2 MG/ML 2 ML VIAL IV PRN (16:51)
[2017-02-02] MEDS: TRAMADOL HCL 50 MG TAB PO PRN (19:10)
[2017-02-02] MEDS: CYCLOBENZAPRINE HCL 5 MG TAB PO PRN (20:03)
[2017-02-02] MEDS: SODIUM CHLORIDE 0.9% 1000ML 1,000 ML IV SCH (20:03)
[2017-02-02] MEDS: CEFTRIAXONE SOD INJ 2,000 MG in DEXTROSE 5% 50ML 50 ML IV SCH (20:09)
[2017-02-02] MEDS: NORTRIPTYLINE HCL 25 MG CAP PO SCH (20:09)
[2017-02-03 03:45] VITALS: BP 146/88; PULSE 69; TEMP 36.5; O2SAT 96
[2017-02-03 06:34] LABS: BASO % 0.2 %; BASO ABS # 0.02 K/uL (0-0.2); COMPLETE YES; EOS % 2.5 %; HEMATOCRIT 41.2 % (42-52); IG% 0.2 %; LYMPH % 19.1 %; LYMPH ABS # 1.59 K/uL (1.2-3.4); MEAN CELL VOLUME 85.5 fL (80-100); MEAN CORPUSCULAR HEMOGLOBIN 29.9 pg (25-34); MEAN PLATELET VOLUME 9.8 fL (7.4-10.4); PLATELET COUNT 176 K/uL (130-400); RED BLOOD COUNT 4.82 M/uL (4.7-6.1); WHITE BLOOD COUNT 8.34 K/uL (4.8-10.8)
[2017-02-03 06:54] VITALS: BP 147/89; PULSE 75; TEMP 36.3; O2SAT 95
[2017-02-03 07:13] LABS: BUN/CREATININE RATIO 9.8 (10-20); CREATININE 0.97 mg/dl (0.60-1.40); MAGNESIUM 2.1 mg/dl (1.8-2.4); POTASSIUM 3.7 mmol/L (3.5-5.1)
[2017-02-03] MEDS: TAMSULOSIN HCL 0.4 MG CAP PO SCH (08:33)
[2017-02-03] MEDS: CITALOPRAM 20 MG TAB PO SCH (08:33)
[2017-02-03] MEDS: TRAMADOL HCL 50 MG TAB PO PRN (08:33)
[2017-02-03] MEDS: SODIUM CHLORIDE 0.9% 1000ML 1,000 ML IV SCH (08:34)
--- NOTE | 2017-02-03 10:48 | Progress Note ---
Subjective Date of Service: Feb 03, 2017. Subjective Pt evaluation today including: conversation w/ patient Pain: Tolerated. Mod sharp pain with voiding PO Intake: Good POD1 patient oob and tolerating diet. No issues. Review of Systems All Other Systems: Reviewed and Negative Objective Vital Signs Date Time Temp Pulse Resp B/P (MAP) Pulse Ox O2 Delivery O2 Flow Rate FiO2 02/03/17 08:00 Room Air 02/03/17 06:54 36.3 75 18 147/89 (108) 95 Room Air 02/03/17 04:00 Room Air 02/03/17 03:45 36.5 69 17 146/88 (107) 96 Room Air 02/03/17 00:01 Room Air 02/02/17 23:25 36.8 79 16 131/80 (97) 94 Room Air 02/02/17 19:15 Room Air 02/02/17 18:23 36.7 79 20 109/70 (83) 94 02/02/17 16:00 Room Air 02/02/17 14:50 36.7 79 18 153/89 (110) 95 Room Air 02/02/17 14:35 36.7 78 18 153/89 (110) 95 Room Air 02/02/17 14:05 36.8 83 18 144/91 (108) 94 Room Air 02/02/17 13:35 36.7 76 18 137/87 (104) 92 Room Air 02/02/17 13:10 Room Air 02/02/17 13:05 36.4 74 21 141/88 (105) 92 Room Air 02/02/17 12:50 36.4 71 21 135/91 (106) 94 Room Air 02/02/17 12:40 69 19 136/91 92 Room Air 02/02/17 12:30 36.3 79 15 142/93 92 Room Air 02/02/17 12:20 76 16 152/92 93 Room Air 02/02/17 12:20 36.7 71 18 146/87 (106) 91 Room Air 02/02/17 12:10 80 13 144/100 98 Oxymask 10 02/02/17 12:00 72 12 152/94 99 Oxymask 10 02/02/17 11:53 36.4 80 14 143/97 94 Oxymask 10 Physical Exam General Appearance: WD/WN, no apparent distress Eyes: normal inspection ENT: normal ENT inspection Neck: no JVD Respiratory/Chest: no accessory muscle use Cardiovascular: regular rate, rhythm Abdomen: non tender, soft Extremities: normal range of motion Neurologic/Psychiatric: residential advisor II-XII nml as tested Skin: normal color Laboratory Results Last 24 Hours Test 02/03/17 05:23 White Blood Count 8.34 K/uL Red Blood Count 4.82 M/uL Hemoglobin 14.4 g/dL Hematocrit 41.2 % Mean Corpuscular Volume 85.5 fL Mean Corpuscular Hemoglobin 29.9 pg Mean Corpuscular Hemoglobin Concent 35.0 g/dl Platelet Count 176 K/uL Mean Platelet Volume 9.8 fL Neutrophils (%) (Auto) 69.0 % Lymphocytes (%) (Auto) 19.1 % Monocytes (%) (Auto) 9.0 % Eosinophils (%) (Auto) 2.5 % Basophils (%) (Auto) 0.2 % Neutrophils # (Auto) 5.75 K/uL Lymphocytes # (Auto) 1.59 K/uL Monocytes # (Auto) 0.75 K/uL Eosinophils # (Auto) 0.21 K/uL Basophils # (Auto) 0.02 K/uL RDW Standard Deviation 40.5 fL RDW Coefficient of Variation 13.0 % Immature Granulocyte % (Auto) 0.2 % Immature Granulocyte # (Auto) 0.02 K/uL Sodium Level 139 mmol/L Potassium Level 3.7 mmol/L Chloride Level 108 mmol/L Carbon Dioxide Level 25 mmol/L Anion Gap 6.0 mmol/L Blood Urea Nitrogen 9 mg/dl Creatinine 0.97 mg/dl Est Creatinine Clear Calc Drug Dose 110.6 ml/min Estimated GFR () 105.1 Estimated GFR (Non- 90.7 BUN/Creatinine Ratio 9.8 Random Glucose 96 mg/dl Calcium Level 8.0 mg/dl Magnesium Level 2.1 mg/dl Assessment and Plan 1 POD1 s/p stent/stone treatment left and dilation right Patient doing well. Improved overall. Will need to continue activity and hydration. Plan for follow up in 1-2 week for bilateral stent removal. Call with any issues. Patient likely need PRN medication for stent discomfort. Will follow. Likely home today.
--- NOTE | 2017-02-03 11:10 | DIAGNOSTIC IMAGING REPORT ---
(CHEST) THORAX WITHOUT CT DOSE: 568.75 mGy.cm HISTORY: Abnormal chest x-ray. r/o mass TECHNIQUE: Multiaxial CT images of the chest were performed without contrast. A dose lowering technique was utilized adhering to the principles of ALARA. COMPARISON: Chest 02/02/2017. FINDINGS: The central airways are patent. No pleural effusions. No pneumothorax. A 6 mm nodule at the right minor fissure on image 127. Scattered linear and patchy densities within the bilateral lower lobes posteriorly. These have a non masslike appearance. There are also a few additional scattered linear densities within the upper lobes. These favor atelectasis. Pneumonia could also a similar appearance. There is a slightly nodular component to the left lower lobe consolidation which measures 2.5 cm. This also likely represents atelectasis. No suspicious lytic or blastic osseous lesions. Hepatic steatosis. The visualized spleen and adrenal glands are unremarkable. The heart is normal in size. Normal caliber thoracic aorta. No mediastinal or hilar lymphadenopathy. IMPRESSION: 1. Scattered linear and patchy densities within the bilateral lower lobes posteriorly. These have a non masslike appearance and are likely due to atelectasis. A pneumonia could also have a similar appearance. 2. There is a slightly nodular component to the left lower lobe consolidation which measures 2.5 cm. This also likely represents atelectasis. However, 1 to [address] follow is recommended to ensure resolution. 3. A 6 mm nodule within the right minor fissure. Please refer to the chart below for recommended follow-up. Please refer to below summary of Fleischner criteria recommendations for follow-up of incidental CT nodules (Samanta Nguyen, Guidelines for management of small pulmonary nodules detected on CT scans: A statement from the Fleischner Society, Radiology 237: [phone].) SOLID NODULES Solitary nodule size: <6 mm * Low risk patients: no follow-up needed * high risk patients: optional CT at 12 months Solitary nodule size: 6-8 mm * Low risk patients: follow-up at 6-12 months, then consider further follow-up at 18-24 months * high risk patients: initial follow-up CT at 6-12 months and then at 18-24 months if no change Solitary nodule size: >8 mm * either low or high risk patients - consider follow-up CT at 3 months, and/or CT-PET, and/or biopsy Multiple nodules size: <6 mm * Low risk patients: no routine follow-up * high risk patients: optional CT at 12 months Multiple nodules size: 6-8 mm * Low risk patients: follow-up at 3-6 months, then consider further follow-up at 18-24 months * high risk patients: follow-up at 3-6 months, then at 18-24 months if no change Multiple nodules size: >8 mm * Low risk patients: follow-up at 3-6 months, then consider further follow-up at 18-24 months * high risk patients: follow-up at 3-6 months, then at 18-24 months if no change Note: newly detected indeterminate nodule in persons 35 years of age or older. * Low risk patients: minimal or absent history of smoking and/or other known risk factors * high risk patients: history of smoking or of other known risk factors (e.g. first degree relative with lung cancer, or exposure to asbestos, radon, uranium) * if a nodule up to 8 mm is partly solid or is ground glass further follow-up is required after 24 months to exclude possible slow growing adenocarcinoma (NIKO) SUBSOLID NODULES Solitary pure ground-glass nodule * nodule size <6 mm - no CT follow-up required * nodule size >=6 mm - follow-up CT at 6-12 months, then every 2 years until 5 years Solitary part-solid nodule * nodule size <6 mm - no CT follow-up required * nodule size >=6 mm - follow-up CT at 3-6 months. If unchanged, and solid component remains <6 mm, then annual follow-up for 5 years Multiple subsolid nodules * nodule size <6 mm - follow-up CT at 3-6 months, consider further follow-up at 2 and 4 years if stable * nodule size >=6 mm - follow-up CT at 3-6 months, subsequent management based on the most suspicious nodule(s) Electronically signed by: Juan Mir M.D. 02/03/2017 11:09 AM Dictated Date/Time: 02/03/2017 11:02 AM
[2017-02-03 11:33] VITALS: BP 135/86; PULSE 89; TEMP 37.1; O2SAT 95
[2017-02-03] MEDS: CYCLOBENZAPRINE HCL 5 MG TAB PO PRN (11:47)
[2017-02-03] MEDS: OXYCODONE/ACETAMINOPHEN 10/325MG TAB PO PRN ×2 (11:48→20:46)
--- NOTE | 2017-02-03 14:32 | PULMONARY CONSULTATION ---
DATE OF CONSULTATION: 02/03/2017 DATE OF CONSULTATION: 02/03/2017 TIME: 1:30 p.m. REPORT OF CONSULTATION: The patient was seen in room 215. He is a 52-year-old male who is being evaluated because of an abnormal CAT scan of the chest. His history is that he developed severe back pain and flank pain approximately 6 days ago. He went to the Emergency Room at [facility]. He was treated with pain medicines and released. He was advised to see a urologist. Two days later he went back to the Emergency Room because of the same issue. He did see a urologist who was going to scope him early next week. However, his pain worsened and he came to the Emergency Room here on 02/01/2017. He was having pain radiating down into the groin. He was having severe vomiting. He was diagnosed with a left ureteric stone. Yesterday, he underwent cystoscopy, bilateral retrograde, bilateral stents, right ureteral dilatation, and left basket stone extraction. His pain is resolved. The patient had an x-ray of his chest done. This suggested an increased opacity over the lower thoracic spine on lateral projection. It was not very prominent on the PA view. This resulted in getting a CAT scan earlier today. The CAT scan shows scattered linear and patchy densities in both lower lung kim posteriorly. These are non-mass like and appear to be related to atelectasis. There is, however, a slightly nodular component to the left lower lobe consolidation measuring up to 2.5 cm. This may also represent atelectasis. There was also a tiny nodule measuring 6 mm in the right minor fissure. The patient states that he has had multiple pneumonias in the past. Some of these were when he was about 16 years old. At age 39 he had a back surgery done in [place] and he had a fairly severe postoperative pneumonia. The patient has never smoked. He denies significant shortness of breath. He has had some shortness of breath the past week related to his ureteric stone but generally he is not short of breath. He does notice that he gets winded when he is hunting more than what he used to. He seems to be quite sedentary. He states he has been disabled due to back problems since 2005. He has never been told of any specific lung disease. The patient states he drinks alcohol rarely. Prior to becoming disabled the patient worked for 22 years for a [employer]. 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 This contained styrene and he does not know what else he might have been exposed to. They apparently had the option of wearing a mask when he was doing this job, but he chose not to wear it most of the time. The patient did have some chills and sweats before coming to the hospital. He believes this was related to his urinary issues and I agree with that. He may have had fevers, but they did not check his temperature. He carries a history of gout for about 2 years. He had been on some allopurinol but he insisted it bothered his stomach. PAST SURGICAL HISTORY: 1. Low back surgery 13 years ago. 2. Vasectomy. PAST MEDICAL HISTORY: 1. Reflux. 2. 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 3. Depression. 4. Heart murmur as a child. 5. History of colon polyps. ALLERGIES: CODEINE AND MORPHINE WHICH CAUSE NAUSEA AND VOMITING. MEDICATIONS: At home citalopram 1 daily, Flexeril 1 t.i.d., nortriptyline 25 mg at bedtime, tamsulosin 0.4 mg daily, oxycodone/acetaminophen 5/325 two tabs q. 4 hours p.r.n. pain. REVIEW OF SYSTEMS: In addition to the above-mentioned complaints, the patient states his appetite is not good. He thinks it began before the recent onset of the kidney stones. He thinks he may have lost 15 pounds or at least his thinks he may have. She was present during this evaluation. The patient and his often time disagree about his symptoms. The patient states that he typically only brings up sputum if he has a cold. The remainder of the review of systems is negative except as noted above. Ten systems were reviewed. FAMILY HISTORY: Mother is living, age 71, diabetes and skin cancer. Father age 47, had some type of metastatic cancer. They did not know where it originated. Brother is living, age 47, has acute myelogenous leukemia. PHYSICAL EXAMINATION: GENERAL: The patient is a 52-year-old male who was cooperative, alert and oriented. He did not appear in any distress. VITAL SIGNS: Temperature is 37.1. HEAD, EYES, EARS, NOSE, AND THROAT: Pupils were reactive to light. Nares were narrow. Mouth exam showed no erythema or exudate. NECK: Palpation of the neck reveals no lymph nodes or masses. HEART: Rate was 90 beats per minute. The rhythm was regular. Blood pressure is 135/86. CHEST: Normal expansion. LUNGS: The breath sounds are mildly diminished at the lung bases. No wheezes, rales, or rhonchi were heard. The respiratory rate was 18. Oxygen saturation is 95% on room air. ABDOMEN: Soft. Bowel sounds were normal. There was no tenderness to palpation, masses, or organomegaly. EXTREMITIES: Showed no cyanosis, clubbing or edema. LABORATORY DATA: Admission white count was 14.33. Today it is down to 8.34. Admission hemoglobin is 18 and today the hemoglobin is 14.4. Platelets were 224,000 on admission and they are down to 176,000. Urine for blood was +1. Bacteria was negative. Electrolytes show sodium 139, potassium 3.7, chloride 108, bicarb 25. BUN was 9 with a creatinine of 0.97. The liver function showed an elevation of ALT at 80. AST was normal at 32. Alkaline phosphatase was normal at 100. Blood cultures have been negative. IMPRESSIONS: 1. Bilateral lower lung field opacifications that appear to be most likely atelectasis and scarring. 2. Cannot exclude a mass lesion in the left lower lobe. 3. A 6 mm nodule in the right minor fissure. COMMENTS AND RECOMMENDATIONS: I believe the patient's x-rays are most compatible with atelectasis. I cannot entirely exclude a left lower lobe mass. He has never smoked and thus has decreased risk. His dad had some type of metastatic cancer. He does not know if it was lung cancer or not. He did have a maternal grandmother that also had some type of cancer and he did not know what kind. I believe it is reasonable to follow up with a CAT scan in 2 months. My office will make those arrangements and I will see him after the CAT scan is completed. If there has been no improvement in the density in the left lower lobe he may need a PET scan or further evaluation and followup. I do not believe he needs any specific treatment for a lung infection. This does not act like an infection. He has been receiving antibiotics. Currently, he is on ceftriaxone. I explained all this in detail to the patient and his . They seem to understand. I gave them my card and told them if they did not hear from my office within a few days that they should call them and make sure that he has a follow-up appointment and CAT scan. We are going to order an incentive spirometer for him and ask him to use it at home. I instructed him in this usage. The patient states he is anticipating discharge tomorrow and from a pulmonary perspective I have no problem with that. Thank you for asking me to assist in his care.
[2017-02-03 14:47] VITALS: BP 112/73; PULSE 83; TEMP 36.7; O2SAT 93
[2017-02-03] MEDS ORDERED: DOCUSATE SODIUM/SENNA 50/8.6MG TAB PO ONE (15:00)
[2017-02-03] MEDS ORDERED: POLYETHYLENE (MIRALAX) 17 GM PACK PO PRN (15:00)
[2017-02-03 19:32] VITALS: BP 147/91; PULSE 82; TEMP 36.8; O2SAT 96
--- NOTE | 2017-02-03 19:42 | Progress Note ---
Medicine Progress Note Date & Time of Visit: Feb 03, 2017 at 12:31. Subjective seen resting in bed, at bedside states pain on the L side , groin only slightly better still has red tinged urine no cough, dyspnea, weight loss (+) constipation no other symptoms Objective Last 8 Hrs Date Time Temp Pulse Resp B/P (MAP) Pulse Ox O2 Delivery O2 Flow Rate FiO2 02/03/17 12:00 Room Air 02/03/17 11:33 37.1 89 18 135/86 (102) 95 Room Air 02/03/17 08:00 Room Air 02/03/17 06:54 36.3 75 18 147/89 (108) 95 Room Air Physical Exam: General- oriented x 3, not in distress, speaks in sentences with no effort Eyes- anicteric Neck- no JVD Lungs- clear breath sounds bilaterally, no rales/wheezing Heart- regular rhythm; no murmur, normal rate Abdomen- normal bowel sounds, soft, (+) mild left CVA tenderness Extremities- no pretibial edema, no calf tenderness Neuro- alert, oriented x 3;no gross focal deficits Skin- warm & dry Laboratory Results: Last 24 Hours Test 02/03/17 05:23 White Blood Count 8.34 K/uL Red Blood Count 4.82 M/uL Hemoglobin 14.4 g/dL Hematocrit 41.2 % Mean Corpuscular Volume 85.5 fL Mean Corpuscular Hemoglobin 29.9 pg Mean Corpuscular Hemoglobin Concent 35.0 g/dl Platelet Count 176 K/uL Mean Platelet Volume 9.8 fL Neutrophils (%) (Auto) 69.0 % Lymphocytes (%) (Auto) 19.1 % Monocytes (%) (Auto) 9.0 % Eosinophils (%) (Auto) 2.5 % Basophils (%) (Auto) 0.2 % Neutrophils # (Auto) 5.75 K/uL Lymphocytes # (Auto) 1.59 K/uL Monocytes # (Auto) 0.75 K/uL Eosinophils # (Auto) 0.21 K/uL Basophils # (Auto) 0.02 K/uL RDW Standard Deviation 40.5 fL RDW Coefficient of Variation 13.0 % Immature Granulocyte % (Auto) 0.2 % Immature Granulocyte # (Auto) 0.02 K/uL Sodium Level 139 mmol/L Potassium Level 3.7 mmol/L Chloride Level 108 mmol/L Carbon Dioxide Level 25 mmol/L Anion Gap 6.0 mmol/L Blood Urea Nitrogen 9 mg/dl Creatinine 0.97 mg/dl Est Creatinine Clear Calc Drug Dose 110.6 ml/min Estimated GFR () 105.1 Estimated GFR (Non- 90.7 BUN/Creatinine Ratio 9.8 Random Glucose 96 mg/dl Calcium Level 8.0 mg/dl Magnesium Level 2.1 mg/dl Assessment & Plan 52 year old male with history of Chronic Back Pain, GERD, Depression presenting with persistent left flank pain x 1 week. LEFT URETERAL OBSTRUCTING STONE WITH URETEROHYDRONEPHROSIS POSSIBLE UTI -- urine culture 02/01/17 from [facility]: negative blood cultures: negative -- s/p Cystoscopy, BL stent placement -- afebrile WBC down from 13 to 8 -- on empiric Ceftriaxone IV Day 3, will d/c IV fluids Toradol, Percocet, Tramadol, Flexeril PRN no Dilaudid and Morphine due to respiratory depression -- highly appreciate Dr. Miranda's input POSSIBLE PULMONARY MASS -- no respiratory symptoms -- Pulm consulted EPISODE OF HYPOXIA -- likely respiratory depression from Dilaudid will avoid IV narcotics -- no cough, on room air HYPO K - resolved CHRONIC BACK PAIN -- on chronic Percocet DEPRESSION -- on Citalopram, Nortriptyline DVT proph SCDs encouraged to ambulate Full code per patient Dispo Anticipate d/c home tomorrow Current Inpatient Medications: Current Inpatient Medications Medications (Trade) Dose Ordered Sig/Virgilio Route Start Time Stop Time Status Last Admin Dose Admin Ketorolac Tromethamine (Toradol Inj) 30 mg Q6H PRN IV 02/01/17 19:15 02/06/17 19:14 02/02/17 23:39 30 MG Ceftriaxone Sodium 2000 mg/ Dextrose 70 ml @ 100 mls/hr Q24H IV 02/01/17 20:00 02/11/17 19:59 02/02/17 20:09 100 MLS/HR Oxycodone/ Acetaminophen (Percocet 10-325MG Tab) 1 tab Q6H PRN PO 02/01/17 19:15 02/15/17 19:14 02/03/17 11:48 1 TAB Acetaminophen (Tylenol Tab) 650 mg Q4H PRN PO 02/01/17 19:15 03/03/17 19:14 Ondansetron HCl (Zofran Inj) 4 mg Q6H PRN IV 02/01/17 19:15 03/03/17 19:14 02/02/17 16:51 4 MG Citalopram Hydrobromide (celeXA TAB) 20 mg DAILY PO 02/02/17 09:00 03/04/17 08:59 02/03/17 08:33 20 MG Nortriptyline HCl (Pamelor Cap) 25 mg HS PO 02/01/17 21:00 03/03/17 20:59 Tamsulosin HCl (Flomax Cap) 0.4 mg DAILY PO 02/02/17 09:00 03/04/17 08:59 02/03/17 08:33 0.4 MG Tramadol HCl (Ultram Tab) 50 mg Q6H PRN PO 02/02/17 18:45 03/04/17 18:44 02/03/17 08:33 50 MG Cyclobenzaprine HCl (Flexeril Tab) 5 mg TID PRN PO 02/02/17 18:45 03/04/17 18:44 02/03/17 11:47 5 MG Sodium Chloride 1,000 ml @ 75 mls/hr [id number] IV 02/02/17 20:30 03/04/17 20:29 02/03/17 08:34 75 MLS/HR
[2017-02-03] MEDS: NORTRIPTYLINE HCL 25 MG CAP PO SCH (20:46)
[2017-02-03] MEDS: CEFTRIAXONE SOD INJ 2,000 MG in DEXTROSE 5% 50ML 50 ML IV SCH (20:46)
[2017-02-03 23:37] VITALS: BP 125/77; PULSE 81; TEMP 36.7; O2SAT 93
[2017-02-04 03:32] VITALS: BP 145/81; PULSE 90; TEMP 36.8; O2SAT 94
[2017-02-04] MEDS: OXYCODONE/ACETAMINOPHEN 10/325MG TAB PO PRN ×2 (04:06→16:21)
[2017-02-04 06:06] LABS: BASO % 0.2 %; BASO ABS # 0.02 K/uL (0-0.2); COMPLETE YES; EOS % 2.2 %; HEMATOCRIT 41.5 % (42-52); IG% 0.1 %; LYMPH % 12.5 %; LYMPH ABS # 1.12 K/uL (1.2-3.4); MEAN CELL VOLUME 84.9 fL (80-100); MEAN CORPUSCULAR HEMOGLOBIN 30.7 pg (25-34); MEAN CORPUSCULAR HGB CONC 36.1 g/dl (32-36); MONO % 9.6 %; NEUT % 75.4 %; PLATELET COUNT 174 K/uL (130-400); RED BLOOD COUNT 4.89 M/uL (4.7-6.1); WHITE BLOOD COUNT 8.99 K/uL (4.8-10.8)
[2017-02-04 06:39] LABS: CALCIUM 8.4 mg/dl (8.5-10.1); CREATININE 0.93 mg/dl (0.60-1.40); POTASSIUM 3.9 mmol/L (3.5-5.1)
[2017-02-04 07:22] VITALS: BP 131/84; PULSE 79; TEMP 36.5; O2SAT 93
[2017-02-04] MEDS ORDERED: COUGH DROP (SUGAR FREE) LOZ 24 LOZ/1 BOX ONE (07:27)
[2017-02-04] MEDS: TRAMADOL HCL 50 MG TAB PO PRN (07:30)
[2017-02-04] MEDS ORDERED: COUGH DROP (SUGAR FREE) LOZ 24 LOZ/1 BOX PO PRN (07:30)
[2017-02-04] MEDS ORDERED: NURSING DECISION MEDICATION ORDER SCH (07:30)
[2017-02-04] MEDS: CITALOPRAM 20 MG TAB PO SCH (07:31)
[2017-02-04] MEDS: TAMSULOSIN HCL 0.4 MG CAP PO SCH (07:31)
[2017-02-04] MEDS ORDERED: DOCUSATE SODIUM/SENNA 50/8.6MG TAB PO SCH (09:00)
[2017-02-04] MEDS: SODIUM CHLORIDE 0.9% 1000ML 1,000 ML IV SCH (10:52)
--- NOTE | 2017-02-04 11:24 | PULMONARY PROGRESS NOTE ---
DATE: 02/04/2017 TIME: 10:50 a.m. SUBJECTIVE: The patient complains of not having a bowel movement. He had some nausea during the nighttime as he was trying to move his bowels. He has also had some abdominal pain in the lower abdominal region. He denies any shortness of breath or cough. They had not brought in the incentive spirometry that was ordered. They did bring it in per my request when I was with the patient. I gave him instruction on proper usage. He is able to get almost to the top of the incentive spirometry, though with subsequent breaths, he did not get quite up as far. I asked him to do this about 4 times per day at home in an attempt to clear the atelectasis in the lower lung field. OBJECTIVE: GENERAL: The patient is comfortable at present. VITAL SIGNS: Temperature is 36.5. He has had no fevers. ENT: Unremarkable. HEART: Heart rate is 79 per minute. The rhythm is regular. Blood pressure 131/84. LUNGS: Lung kim are clear bilaterally. Room air pulse oximetry was recorded as 93%. This is a little lower than I would have expected, but he had no complaints. Respiratory rate is 18 breaths per minute. EXTREMITIES: Show no cyanosis, clubbing or edema. LABORATORY DATA: White count today is 8.99. Hemoglobin is 15. Platelets 174,000. Electrolytes are normal. BUN and creatinine were 11 and 0.93 respectively. IMPRESSIONS: 1. Bilateral lower lung field opacifications, most likely atelectasis and scarring. 2. Cannot exclude mass lesion left lower lobe. 3. A 6 mm nodule right minor fissure. COMMENTS AND RECOMMENDATIONS: I have no objection to discharge from a pulmonary perspective. My office will set up a followup as well as his CAT scan of the chest for 2 months. As noted yesterday, I had given him my phone number to call if there are any problems or if he does not hear from anyone in the next several days. As noted, I had given him instruction on the incentive spirometry.
[2017-02-04 11:35] VITALS: BP 151/90; PULSE 95; TEMP 36.7; O2SAT 98
[2017-02-04] MEDS ORDERED: LACTULOSE SYRUP 30 GM/45 ML UDP PO STA (11:46)
--- NOTE | 2017-02-04 11:52 | Progress Note ---
Medicine Progress Note Date & Time of Visit: Feb 04, 2017 at 11:47. Subjective patient seen sitting in bed, having lunch still with NO BM (+) flatus flank pain improving still has mild hematuria no other symptoms Objective Last 8 Hrs Date Time Temp Pulse Resp B/P (MAP) Pulse Ox O2 Delivery O2 Flow Rate FiO2 02/04/17 11:35 36.7 95 20 151/90 (110) 98 Room Air 02/04/17 08:00 Room Air 02/04/17 07:22 36.5 79 18 131/84 (100) 93 Room Air 02/04/17 04:00 Room Air Physical Exam: General- oriented x 3, not in distress, speaks in sentences with no effort Eyes- anicteric Neck- no JVD Lungs- clear BS bilaterally, no rales/wheezing Heart- regular rhythm; no murmur, normal rate Abdomen- normal bowel sounds, soft, non distended, NO left CVA tenderness Extremities- no pretibial edema, no calf tenderness Neuro- alert, oriented x 3;no gross focal deficits Skin- warm & dry Laboratory Results: Last 24 Hours Test 02/04/17 05:12 White Blood Count 8.99 K/uL Red Blood Count 4.89 M/uL Hemoglobin 15.0 g/dL Hematocrit 41.5 % Mean Corpuscular Volume 84.9 fL Mean Corpuscular Hemoglobin 30.7 pg Mean Corpuscular Hemoglobin Concent 36.1 g/dl Platelet Count 174 K/uL Mean Platelet Volume 10.0 fL Neutrophils (%) (Auto) 75.4 % Lymphocytes (%) (Auto) 12.5 % Monocytes (%) (Auto) 9.6 % Eosinophils (%) (Auto) 2.2 % Basophils (%) (Auto) 0.2 % Neutrophils # (Auto) 6.78 K/uL Lymphocytes # (Auto) 1.12 K/uL Monocytes # (Auto) 0.86 K/uL Eosinophils # (Auto) 0.20 K/uL Basophils # (Auto) 0.02 K/uL RDW Standard Deviation 40.2 fL RDW Coefficient of Variation 13.0 % Immature Granulocyte % (Auto) 0.1 % Immature Granulocyte # (Auto) 0.01 K/uL Sodium Level 138 mmol/L Potassium Level 3.9 mmol/L Chloride Level 105 mmol/L Carbon Dioxide Level 26 mmol/L Anion Gap 7.0 mmol/L Blood Urea Nitrogen 11 mg/dl Creatinine 0.93 mg/dl Est Creatinine Clear Calc Drug Dose 115.6 ml/min Estimated GFR () 110.6 Estimated GFR (Non- 95.4 BUN/Creatinine Ratio 12.0 Random Glucose 110 mg/dl Calcium Level 8.4 mg/dl Magnesium Level 2.0 mg/dl Chemistry Specimen Hemolysis Assessment & Plan 52 year old male with history of Chronic Back Pain, GERD, Depression presenting with persistent left flank pain x 1 week. LEFT URETERAL OBSTRUCTING STONE WITH URETEROHYDRONEPHROSIS POSSIBLE UTI -- urine culture 02/01/17 from [facility]: negative blood cultures: negative -- s/p Cystoscopy, BL stent placement -- afebrile WBC down from 13 to 8 -- given empiric Ceftriaxone IV x 3 days IV fluids Toradol, Percocet, Tramadol, Flexeril PRN no Dilaudid and Morphine due to respiratory depression -- highly appreciate Dr. Miranda's input POSSIBLE PULMONARY MASS -- no respiratory symptoms -- CT chest: IMPRESSION: 1. Scattered linear and patchy densities within the bilateral lower lobes posteriorly. These have a non masslike appearance and are likely due to atelectasis. A pneumonia could also have a similar appearance. 2. There is a slightly nodular component to the left lower lobe consolidation which measures 2.5 cm. This also likely represents atelectasis. However, 1 to [address] follow is recommended to ensure resolution. 3. A 6 mm nodule within the right minor fissure. Please refer to the chart below for recommended follow-up. -- Pulm consulted recommend repeat CT in 2 months EPISODE OF HYPOXIA -- likely respiratory depression from Dilaudid will avoid IV narcotics -- no cough, on room air HYPO K - resolved CONSTIPATION - will try Lactulose CHRONIC BACK PAIN -- on chronic Percocet DEPRESSION -- on Citalopram, Nortriptyline DVT proph SCDs encouraged to ambulate Full code per patient Dispo Anticipate d/c home later Current Inpatient Medications: Current Inpatient Medications Medications (Trade) Dose Ordered Sig/Virgilio Route Start Time Stop Time Status Last Admin Dose Admin Ceftriaxone Sodium 2000 mg/ Dextrose 70 ml @ 100 mls/hr Q24H IV 02/01/17 20:00 02/11/17 19:59 02/03/17 20:46 100 MLS/HR Oxycodone/ Acetaminophen (Percocet 10-325MG Tab) 1 tab Q6H PRN PO 02/01/17 19:15 02/15/17 19:14 02/04/17 04:06 1 TAB Acetaminophen (Tylenol Tab) 650 mg Q4H PRN PO 02/01/17 19:15 03/03/17 19:14 Ondansetron HCl (Zofran Inj) 4 mg Q6H PRN IV 02/01/17 19:15 03/03/17 19:14 02/02/17 16:51 4 MG Citalopram Hydrobromide (celeXA TAB) 20 mg DAILY PO 02/02/17 09:00 03/04/17 08:59 02/04/17 07:31 20 MG Nortriptyline HCl (Pamelor Cap) 25 mg HS PO 02/01/17 21:00 03/03/17 20:59 Tamsulosin HCl (Flomax Cap) 0.4 mg DAILY PO 02/02/17 09:00 03/04/17 08:59 02/04/17 07:31 0.4 MG Tramadol HCl (Ultram Tab) 50 mg Q6H PRN PO 02/02/17 18:45 03/04/17 18:44 02/04/17 07:30 50 MG Cyclobenzaprine HCl (Flexeril Tab) 5 mg TID PRN PO 02/02/17 18:45 03/04/17 18:44 02/03/17 11:47 5 MG Sodium Chloride 1,000 ml @ 75 mls/hr [id number] IV 02/02/17 20:30 03/04/17 20:29 02/03/17 08:34 75 MLS/HR Senna/Docusate Sodium (Senokot S Tab) 1 tab QAM PO 02/04/17 09:00 03/06/17 08:59 02/04/17 07:30 1 TAB Polyethylene (Miralax Powder Packet) 17 gm DAILY PRN PO 02/03/17 15:00 03/05/17 14:59 02/04/17 07:30 17 GM Menthol (Nice Shayna) 1 shayna PRN PRN PO 02/04/17 07:30 03/06/17 07:29
[2017-02-04] MEDS ORDERED: BISACODYL 10 MG SUPP PR PRN (12:00)
[2017-02-04 15:34] VITALS: BP 136/78; PULSE 74; O2SAT 96
[2017-02-04 15:43] VITALS: BP 151/89; PULSE 89; TEMP 36.7; O2SAT 99
[2017-02-04 17:36] VITALS: BP 151/89; PULSE 89; TEMP 36.7; O2SAT 99
[2017-02-04] MEDS ORDERED: SENN8.6T7 PO (17:36)
[2017-02-04] MEDS ORDERED: LCTL45 PO (17:36)
[2017-02-04] MEDS ORDERED: CYCL10TA6 PO (17:36)
--- NOTE | 2017-02-04 17:42 | Discharge Instructions ---
Discharge Instructions Date of Service Feb 04, 2017. Admission Reason for Admission: Intractable Pain Discharge Discharge Diagnosis / Problem: URETERAL STONE Discharge Goals Goal(s): Diagnostic testing, Therapeutic intervention Activity Recommendations Activity Limitations: as noted below (NO HEAVY EXERTION UNTIL RE-EVALUATED BY PRIMARY CARE PHYSICIAN) Lifting Limitations: until after follow-up appointment Exercise/Sports Limitations: until after follow-up appointment . Instructions / Follow-Up Instructions / Follow-Up PLEASE REVIEW YOUR NEW MEDICATION LIST AND FOLLOW INSTRUCTIONS CAREFULLY. ENSURE ADEQUATE DAILY FLUID INTAKE. EAT HIGH FIBER DIET. AMBULATE MUCH YOU CAN. CALL PRIMARY CARE PHYSICIAN OR UROLOGIST, OR RETURN TO ER IMMEDIATELY IF WITH INCREASING PAIN, BLOOD IN THE URINE, FEVER/CHILLS, NAUSEA/VOMITING, DIARRHEA. FOLLOW UP WITH PRIMARY CARE PHYSICIAN IN 1 WEEK. FOLLOW UP WITH UROLOGIST DR. TIERRA FRANCO IN 1 WEEK. FOLLOW UP WITH LUNG SPECIALIST DR. SNEHAL MORRIS ADVISED. Current Hospital Diet Patient's current hospital diet: Regular Diet Discharge Diet Recommended Diet: Regular Diet Procedures Procedures Performed: Cystoscopy, Bilateral Retrograde, Bilateral Ureteroscopy, Bilateral Stent placement, Right ureteral dilatation, Left Basket Stone Extraction Pending Studies Studies pending at discharge: yes List of pending studies: STENT REMOVAL IN 1-2 WEEKS BY UROLOGIST; REPEAT CT SCAN OF THE CHEST IN 2 MONTHS C/O LUNG SPECIALIST Medical Emergencies . Who to Call and When: Medical Emergencies: If at any time you feel your situation is an emergency, please call 911 immediately. . Non-Emergent Contact Non-Emergency issues call your: Primary Care Provider, Urologist Call Non-Emergent contact if: you have a fever, your pain is not controlled, your pain is worsening, you have any medication questions . . "Provider Documentation" section prepared by Jamar Lopez. . VTE Core Measure Inpt VTE Proph given/why not?: SCD's [place] Drug Monitoring Program Search Results: patient reviewed within database, no issues identified
--- NOTE | 2017-02-04 17:50 | Discharge Summary ---
Discharge Summary Date of Service Feb 04, 2017. Discharge Summary Admission Date: Feb 01, 2017 at 17:56 Discharge Date: Feb 04, 2017 Discharge Disposition: Home Principal Diagnosis: LEFT URETERAL OBSTRUCTING STONE WITH URETEROHYDRONEPHROSIS POSSIBLE UTI Secondary Diagnoses/Problems: PLEASE REFER TO HOSPITAL COURSE BELOW. Procedures: S/P CYSTOSCOPY Cystoscopy, Bilateral Retrograde, Bilateral Ureteroscopy, Bilateral Stent placement, Right ureteral dilatation, Left Basket Stone Extraction --Right distal ureter stricture. Left Obstructing stone mid ureter near crossing of iliac vessels. (CHEST) THORAX WITHOUT CT DOSE: 568.75 mGy.cm HISTORY: Abnormal chest x-ray. r/o mass TECHNIQUE: Multiaxial CT images of the chest were performed without contrast. A dose lowering technique was utilized adhering to the principles of ALARA. COMPARISON: Chest 02/02/2017. FINDINGS: The central airways are patent. No pleural effusions. No pneumothorax. A 6 mm nodule at the right minor fissure on image 127. Scattered linear and patchy densities within the bilateral lower lobes posteriorly. These have a non masslike appearance. There are also a few additional scattered linear densities within the upper lobes. These favor atelectasis. Pneumonia could also a similar appearance. There is a slightly nodular component to the left lower lobe consolidation which measures 2.5 cm. This also likely represents atelectasis. No suspicious lytic or blastic osseous lesions. Hepatic steatosis. The visualized spleen and adrenal glands are unremarkable. The heart is normal in size. Normal caliber thoracic aorta. No mediastinal or hilar lymphadenopathy. IMPRESSION: 1. Scattered linear and patchy densities within the bilateral lower lobes posteriorly. These have a non masslike appearance and are likely due to atelectasis. A pneumonia could also have a similar appearance. 2. There is a slightly nodular component to the left lower lobe consolidation which measures 2.5 cm. This also likely represents atelectasis. However, 1 to [address] follow is recommended to ensure resolution. 3. A 6 mm nodule within the right minor fissure. Please refer to the chart below for recommended follow-up. Please refer to below summary of Fleischner criteria recommendations for follow-up of incidental CT nodules (Samanta Nguyen, Guidelines for management of small pulmonary nodules detected on CT scans: A statement from the Fleischner Society, Radiology 237: [phone].) SOLID NODULES Solitary nodule size: <6 mm * Low risk patients: no follow-up needed * high risk patients: optional CT at 12 months Solitary nodule size: 6-8 mm * Low risk patients: follow-up at 6-12 months, then consider further follow-up at 18-24 months * high risk patients: initial follow-up CT at 6-12 months and then at 18-24 months if no change Solitary nodule size: >8 mm * either low or high risk patients - consider follow-up CT at 3 months, and/or CT-PET, and/or biopsy Multiple nodules size: <6 mm * Low risk patients: no routine follow-up * high risk patients: optional CT at 12 months Multiple nodules size: 6-8 mm * Low risk patients: follow-up at 3-6 months, then consider further follow-up at 18-24 months * high risk patients: follow-up at 3-6 months, then at 18-24 months if no change Multiple nodules size: >8 mm * Low risk patients: follow-up at 3-6 months, then consider further follow-up at 18-24 months * high risk patients: follow-up at 3-6 months, then at 18-24 months if no change Note: newly detected indeterminate nodule in persons 35 years of age or older. * Low risk patients: minimal or absent history of smoking and/or other known risk factors * high risk patients: history of smoking or of other known risk factors (e.g. first degree relative with lung cancer, or exposure to asbestos, radon, uranium) * if a nodule up to 8 mm is partly solid or is ground glass further follow-up is required after 24 months to exclude possible slow growing adenocarcinoma (NIKO) SUBSOLID NODULES Solitary pure ground-glass nodule * nodule size <6 mm - no CT follow-up required * nodule size >=6 mm - follow-up CT at 6-12 months, then every 2 years until 5 years Solitary part-solid nodule * nodule size <6 mm - no CT follow-up required * nodule size >=6 mm - follow-up CT at 3-6 months. If unchanged, and solid component remains <6 mm, then annual follow-up for 5 years Multiple subsolid nodules * nodule size <6 mm - follow-up CT at 3-6 months, consider further follow-up at 2 and 4 years if stable * nodule size >=6 mm - follow-up CT at 3-6 months, subsequent management based on the most suspicious nodule(s) Consultations: UROLOGIST DR. FRANCO, PULMONARY DR. MORRIS Pending Studies/Follow-Up: STENT REMOVAL IN 1-2 WEEKS, REPEAT CT CHEST IN 2 MONTHS PER PULMONARY; PLEASE REFER TO HOSPITAL COURSE BELOW FOR FURTHER DETAILS. Medication Reconciliation New Medications: Cephalexin Monohydrate (Keflex) 500 Mg Cap 500 MG PO BID for 3 Days, #6 CAP Lactulose (Lactulose) 30 Gm/45 Ml Syrp 45 ML PO DAILY PRN for Constipation, #315 ML 1 Refill Phenazopyridine Hcl (Pyridium) 200 Mg Tab 200 MG PO TID, #6 TAB Sennosides-Docusate Sodium (Senokot S) 1 Tab Tab 1 TAB PO QAM for 10 Days, #10 TAB 1 Refill Changed Medications: Cyclobenzaprine Hcl (Flexeril) 10 Mg Tab 1 TAB PO TID PRN for Muscle Spasms for 7 Days, #21 TAB (Medication details modified) Continued Medications: Citalopram Hydrobromide (Celexa) 20 Mg Tab 1 TAB PO DAILY, TAB Nortriptyline (Pamelor) 25 Mg Cap 25 MG PO HS, CAP Oxycodone/Acetaminophen 5MG/325MG (Percocet 5MG/325MG) Tab 2 TABLETS PO Q4H PRN for Pain, TAB PAIN Tamsulosin HCl (Tamsulosin HCl) 0.4 Mg Cap 0.4 MG PO DAILY Admission Information HPI (per Admitting provider): 52 year old male with history of Chronic Back Pain, GERD, Depression presenting with persistent left flank pain x 1 week. Patient had 2 ER visits at [facility] the past week secondary to left flank pain. CT abdomen last taken 01/30/17 showed left ureteral stone 3mm, distal ureter, obstructing with left hydroureteronephrosis and perinephric/ureteral stranding. He is currently following with [facility] in [place] and scheduled for cystoscopy on Sunday. Today, patient had severe pain, called the Urology Clinic and was advised to go to [facility] for management. At the ER, patient was given Dilaudid but noted to desaturate in the 70s, placed on oxygen and improved. His WBC is elevated at 14k, but afebrile, UA no bacteria. On exam, patient states pain is moderate, radiating to left flank, and testicle. Denies dominic hematuria, has chills. No other symptoms. Denies dyspnea, cough, chest pain. Physical Exam (per Admitting): General Appearance: WD/WN, no apparent distress Head: normocephalic, atraumatic Eyes: normal inspection, EOMI, sclerae normal ENT: normal ENT inspection, hearing grossly normal, pharynx normal Neck: supple, no adenopathy, thyroid normal, no JVD, trachea midline Respiratory/Chest: chest non-tender, lungs clear, normal breath sounds, no respiratory distress, no accessory muscle use Cardiovascular: regular rate, rhythm, no edema, no JVD, no murmur, normal peripheral pulses Abdomen/GI: normal bowel sounds, soft, no organomegaly, + pertinent finding (mild left CVA tenderness, left flank tenderness) Back: normal inspection, + left CVA tenderness Extremities/Musculoskelatal: normal inspection, no calf tenderness, normal capillary refill, no pedal edema Neurologic/Psych: bandoleer straightener stamper II-XII nml as tested, no motor/sensory deficits, alert , normal mood/affect, oriented x 3 Skin: normal color, warm/dry, no rash Lymphatic: no adenopathy Hospital Course 52 year old male with history of Chronic Back Pain, GERD, Depression presenting with persistent left flank pain x 1 week. LEFT URETERAL OBSTRUCTING STONE WITH URETEROHYDRONEPHROSIS POSSIBLE UTI -- urine culture 02/01/17 from [facility]: negative blood cultures: negative -- s/p Cystoscopy, Bilateral Retrograde, Bilateral Ureteroscopy, Bilateral Stent Placement, Right ureteral dilatation, Left Basket Stone Extraction -- afebrile WBC down from 13 to 8 -- given empiric Ceftriaxone IV x 3 days IV fluids Toradol, Percocet, Tramadol, Flexeril PRN no Dilaudid and Morphine due to respiratory depression - discharge on Cephalexin 3 days, Pyridium - ff up with Dr. Franco in 1-2 weeks for stent removal POSSIBLE PULMONARY MASS -- no respiratory symptoms -- history of smoke exposure, lung ca with brother and father -- CT chest: IMPRESSION: 1. Scattered linear and patchy densities within the bilateral lower lobes posteriorly. These have a non masslike appearance and are likely due to atelectasis. A pneumonia could also have a similar appearance. 2. There is a slightly nodular component to the left lower lobe consolidation which measures 2.5 cm. This also likely represents atelectasis. However, 1 to [address] follow is recommended to ensure resolution. 3. A 6 mm nodule within the right minor fissure. Please refer to the chart below for recommended follow-up. -- Pulm consulted: Dr. Morris recommend repeat CT in 2 months EPISODE OF HYPOXIA -- likely respiratory depression from IV Dilaudid given at the ER -- no cough, on room air HYPOKALEMIA - resolved CONSTIPATION - resolved - given Senokot S and Lactulose CHRONIC BACK PAIN -- on chronic Percocet DEPRESSION -- on Citalopram, Nortriptyline Dispo d/c home ff up with PCP, Urologist in 1 week ff up with Pulmonary as advised for repeat CT chest in 2 months Total time spent on discharge = 30 minutes This includes examination of the patient, discharge planning, medication reconciliation, and communication with other providers. Discharge Instructions Discharge Instructions Date of Service Feb 04, 2017. Admission Reason for Admission: Intractable Pain Discharge Discharge Diagnosis / Problem: URETERAL STONE Discharge Goals Goal(s): Diagnostic testing, Therapeutic intervention Activity Recommendations Activity Limitations: as noted below (NO HEAVY EXERTION UNTIL RE-EVALUATED BY PRIMARY CARE PHYSICIAN) Lifting Limitations: until after follow-up appointment Exercise/Sports Limitations: until after follow-up appointment . Instructions / Follow-Up Instructions / Follow-Up PLEASE REVIEW YOUR NEW MEDICATION LIST AND FOLLOW INSTRUCTIONS CAREFULLY. ENSURE ADEQUATE DAILY FLUID INTAKE. EAT HIGH FIBER DIET. AMBULATE MUCH YOU CAN. CALL PRIMARY CARE PHYSICIAN OR UROLOGIST, OR RETURN TO ER IMMEDIATELY IF WITH INCREASING PAIN, BLOOD IN THE URINE, FEVER/CHILLS, NAUSEA/VOMITING, DIARRHEA. FOLLOW UP WITH PRIMARY CARE PHYSICIAN IN 1 WEEK. FOLLOW UP WITH UROLOGIST DR. TIERRA FRANCO IN 1 WEEK. FOLLOW UP WITH LUNG SPECIALIST DR. SNEHAL MORRIS ADVISED. Current Hospital Diet Patient's current hospital diet: Regular Diet Discharge Diet Recommended Diet: Regular Diet Procedures Procedures Performed: Cystoscopy, Bilateral Retrograde, Bilateral Ureteroscopy, Bilateral Stent placement, Right ureteral dilatation, Left Basket Stone Extraction Pending Studies Studies pending at discharge: yes List of pending studies: STENT REMOVAL IN 1-2 WEEKS BY UROLOGIST; REPEAT CT SCAN OF THE CHEST IN 2 MONTHS C/O LUNG SPECIALIST Medical Emergencies . Who to Call and When: Medical Emergencies: If at any time you feel your situation is an emergency, please call 911 immediately. . Non-Emergent Contact Non-Emergency issues call your: Primary Care Provider, Urologist Call Non-Emergent contact if: you have a fever, your pain is not controlled, your pain is worsening, you have any medication questions . . "Provider Documentation" section prepared by Jamar Lopez. . VTE Core Measure Inpt VTE Proph given/why not?: SCD's [place] Drug Monitoring Program Search Results: patient reviewed within database, no issues identified
[2017-02-04] MEDS ORDERED: CEPHALEXIN MONOHYDRATE 500 MG CAP PO SCH (21:00)
[2017-02-05] MEDS ORDERED: CEPHALEXIN MONOHYDRATE 500 MG CAP PO SCH (09:00)
== END 2017-02-04 18:25 | disposition home or self-care (01) | DRG 670 ==
LOC: C.EDB 16:31 → C.2T 17:56 → ENRESERV 18:01
PROVIDERS: ADMIT Internal Medicine; ATTEND Internal Medicine
PROC: 0T788DZ Dilation of Bilateral Ureters with Intraluminal Device, Via Natural or Artificial Opening Endoscopic (ICD-10-PCS; principal; 2017-02-02 09:30)
PROC: 0TC78ZZ Extirpation of Matter from Left Ureter, Via Natural or Artificial Opening Endoscopic (ICD-10-PCS; principal; 2017-02-02 09:30)
PROC: BT14ZZZ Fluoroscopy of Kidneys, Ureters and Bladder (ICD-10-PCS; principal; 2017-02-02 09:30)
DX: N13.6 Pyonephrosis (principal); K21.9 Gastro-esophageal reflux disease without esophagitis; F32.9 Major depressive disorder, single episode, unspecified; E87.6 Hypokalemia; R09.02 Hypoxemia; K59.00 Constipation, unspecified; T40.2X5A Adverse effect of other opioids, initial encounter; Y92.239 Unspecified place in hospital as the place of occurrence of the external cause; Z98.1 Arthrodesis status

== ENCOUNTER → 2017-02-13 | Outpatient (CLI) | payer OTHER ==
[~2017-02-13] MED LIST changes: +FLM4 PO; +LCTL45 PO; +PHEN-775 PO; +SENN8.6T7 PO; -oxycontin PO
--- NOTE | 2017-02-13 13:05 | DIAGNOSTIC IMAGING REPORT ---
KUB CLINICAL HISTORY: Nephrolithiasis. FINDINGS: An AP supine abdominal radiograph is compared to study dated 02/02/2017. Bilateral ureteral stents are new from previous. No calcifications are seen along the course of the stents. There is no radiographic evidence of nephrolithiasis. Pelvic phleboliths are observed. There is a nonobstructed abdominal bowel gas pattern. The bony structures appear intact. IMPRESSION: 1. Bilateral ureteral stents are new from 02/02/2017. No calcifications are seen along the course of the stents. 2. There is no radiographic evidence of nephrolithiasis on today's examination. Electronically signed by: Bharathi Birch M.D. 02/13/2017 1:03 PM Dictated Date/Time: 02/13/2017 1:00 PM
== END | disposition home or self-care (01) ==
LOC: C.RAD 12:31
PROVIDERS: ATTEND Urology
DX: N20.0 Calculus of kidney (principal)

== ENCOUNTER → 2017-04-09 | Outpatient (CLI) | payer OTHER ==
[~2017-04-09] MED LIST changes: -PHEN-775 PO
--- NOTE | 2017-04-09 10:13 | DIAGNOSTIC IMAGING REPORT ---
CT SCAN OF THE CHEST WITHOUT IV CONTRAST CLINICAL HISTORY: Follow-up abnormal chest CT. Left lower lobe nodule/consolidation. COMPARISON STUDY: Chest CT dated 02/03/2017. TECHNIQUE: CT scan of the thorax was performed from the thoracic inlet to the upper abdomen. Images are reviewed in the axial, sagittal, and coronal planes. IV contrast was not administered for this examination as per the front clinician. A dose lowering technique was utilized adhering to the principles of ALARA. CT DOSE: 606.78 mGycm FINDINGS: Thyroid: Imaged portions of the thyroid gland are normal in size and attenuation. Thoracic aorta: The thoracic aorta is normal in caliber and demonstrates standard 3-vessel arch anatomy. Heart: The heart is enlarged and without pericardial effusion. The pulmonary trunk is dilated, measuring 3.4 cm in transverse diameter. This suggests pulmonary artery hypertension. Lungs and pleural spaces: There is no airspace consolidation or pleural effusion. Linear atelectasis versus scarring is seen in the lower lobes. The focus of nodular consolidation in the left lower lobe has resolved as compared to 02/03/2017. The trachea and central airways are clear. A 5 mm pleural-based nodule in the right lower lobe along the major fissure seen on image #144 and a 6 mm pleural-based nodule in the right middle lobe along the minor fissure seen on image #151 are unchanged. No new pulmonary nodule is identified. Mediastinum: There is no mediastinal lymphadenopathy. Trisha: Not well assessed without IV contrast. Axillae: There is no axillary lymphadenopathy. Upper abdomen: The liver is enlarged and steatotic. The spleen is enlarged, measuring 13.7 cm in length. A tiny hiatal hernia is noted Skeletal structures: No lytic or blastic bony lesions are seen. IMPRESSION: 1. There is no airspace consolidation or pleural effusion. 2. Bibasilar airspace opacities and nodular consolidation in the left lower lobe seen on 02/03/2017 have resolved. 3. Cardiomegaly with evidence of pulmonary artery hypertension. 4. There are 2 pleural-based nodules in the right lower lung measuring up to 6 mm. These are pathologically indeterminant but low suspicion and can be followed as per the Fleischner criteria if clinically warranted. See below. 5. Hepatomegaly and hepatic steatosis. 6. Splenomegaly. Please refer to below summary of Fleischner criteria recommendations for follow-up of incidental CT nodules (H Patrick, Guidelines for management of small pulmonary nodules detected on CT scans: A statement from the Fleischner Society, Radiology 237: [phone].) SOLID NODULES Solitary nodule size: <6 mm * low risk patients: no follow-up needed * high risk patients: optional CT at 12 months Solitary nodule size: 6-8 mm * low risk patients: follow-up at 6-12 months, then consider further follow-up at 18-24 months * high risk patients: initial follow-up CT at 6-12 months and then at 18-24 months if no change Solitary nodule size: >8 mm * either low or high risk patients - consider follow-up CT at 3 months, and/or CT-PET, and/or biopsy Multiple nodules size: <6 mm * low risk patients: no routine follow-up * high risk patients: optional CT at 12 months Multiple nodules size: 6-8 mm * low risk patients: follow-up at 3-6 months, then consider further follow-up at 18-24 months * high risk patients: follow-up at 3-6 months, then at 18-24 months if no change Multiple nodules size: >8 mm * low risk patients: follow-up at 3-6 months, then consider further follow-up at 18-24 months * high risk patients: follow-up at 3-6 months, then at 18-24 months if no change Note: newly detected indeterminate nodule in persons 35 years of age or older. * low risk patients: minimal or absent history of smoking and/or other known risk factors * high risk patients: history of smoking or of other known risk factors (e.g. first degree relative with lung cancer, or exposure to asbestos, radon, uranium) * if a nodule up to 8 mm is partly solid or is ground glass further follow-up is required after 24 months to exclude possible slow growing adenocarcinoma (NIKO) SUBSOLID NODULES Solitary pure ground-glass nodule * nodule size <6 mm - no CT follow-up required * nodule size >=6 mm - follow-up CT at 6-12 months, then every 2 years until 5 years Solitary part-solid nodule * nodule size <6 mm - no CT follow-up required * nodule size >=6 mm - follow-up CT at 3-6 months. If unchanged, and solid component remains <6 mm, then annual follow-up for 5 years Multiple subsolid nodules * nodule size <6 mm - follow-up CT at 3-6 months, consider further follow-up at 2 and 4 years if stable * nodule size >=6 mm - follow-up CT at 3-6 months, subsequent management based on the most suspicious nodule(s) Electronically signed by: Bharathi Birch M.D. 04/09/2017 10:12 AM Dictated Date/Time: 04/09/2017 10:05 AM
== END | disposition home or self-care (01) ==
LOC: C.CTS 09:45
PROVIDERS: ATTEND Internal Medicine Pulmonary Disease
DX: R91.8 Other nonspecific abnormal finding of lung field (principal); I51.7 Cardiomegaly; K76.0 Fatty (change of) liver, not elsewhere classified; R16.1 Splenomegaly, not elsewhere classified

== ENCOUNTER → 2017-06-22 | Outpatient (CLI) | payer OTHER ==
[~2017-06-22] MED LIST changes: +OPTIRAY 300 IV PRN
--- NOTE | 2017-06-22 14:46 | DIAGNOSTIC IMAGING REPORT ---
IV PYELOGRAM CLINICAL HISTORY: Nephrolithiasis. Urethral stricture. COMPARISON STUDY: KUB dated 02/13/2017. TECHNIQUE: An abdominal clinical biostatistics director radiograph is performed. IVP pyelogram was then performed following the IV administration of 100 cc of Optiray 300, tomographic images are acquired in the corticomedullary and excretory phases of enhancement. Overhead views of the renal collecting system and bladder were obtained in multiple obliquities both pre and post void. FINDINGS: The clinical biostatistics director radiograph shows a nonobstructed abdominal bowel gas pattern. There is no radiographic evidence of nephrolithiasis. Ureteral stents have been removed as compared 02/13/2017. A large phlebolith is seen in the pelvis. There are postoperative changes from lumbosacral spinal fusion. Following contrast menstruation there is symmetric renal cortical enhancement and contrast excretion. No evidence of hypervascular mass lesion is seen on the tomographic images. There is no hydronephrosis. There are no filling defects identified within the renal pelvis bilaterally or along the course of the ureters to suggest urothelial lesion. There is no convincing evidence of ureteral stricture. The bladder is normal as visualized. No significant post void residual is seen. IMPRESSION: Normal IV pyelogram. Electronically signed by: Bharathi Birch M.D. 06/22/2017 2:45 PM Dictated Date/Time: 06/22/2017 2:42 PM
== END | disposition home or self-care (01) ==
LOC: C.RAD 12:09
PROVIDERS: ATTEND Urology
DX: N13.5 Crossing vessel and stricture of ureter without hydronephrosis (principal); N20.0 Calculus of kidney